=== PATIENT | male | born 1955 | race Caucasian/White ===

== ENCOUNTER 2020-06-07 06:41 | Day surgery (SDC) | payer MEDICARE, OTHER ==
[~2020-06-07 06:41] MED LIST: Lactated Ringers 1,000 ML IV SCH; Lidocaine 1%/Sod Bicarbonate in NS 8.4% 1 ML Syringe IDERM PRN; Sodium Chloride 0.9% 10 ML Syringe FLUSH PRN
--- NOTE | 2020-06-07 06:57 | PCM.PREANE ---
Preanesthetic Assessment - Procedure Proposed Procedure: A one deepa release - Anesthesia/Transfusion/Family Hx Anesthesia History: Prior Anesthesia Reaction (nausea) Family History of Anesthesia Reaction: No Transfusion History: No Prior Transfusion(s) - Review of Systems General: No Symptoms Pulmonary: No Symptoms Cardiovascular: No Symptoms Gastrointestinal: No Symptoms Neurological: No Symptoms Other: Reports: None - Physical Assessment NPO Status Date: 06/06/20 NPO Status Time: 00:00 Height: 1.83 m Weight: 95.118 kg ASA Class: 2 Mental Status: Alert & Oriented x3 Airway Class: Mallampati = 1 Dentition: Reports: Normal Dentition Thyro-Mental Finger Breadths: 3 Mouth Opening Finger Breadths: 3 ROM/Head Extension: Full Lungs: Clear to Auscultation, Normal Respiratory Effort Cardiovascular: Regular Rate, Regular Rhythm - Lab Values: Laboratory Last Values COVID-19 PCR Not detected (NOT DETECT) 06/04/20 11:00 - Allergies Allergies/Adverse Reactions: Allergies Allergy/AdvReac Type Severity Reaction Status Date / Time No Known Allergies Allergy Verified 06/06/20 14:27 - Blood Blood Available: No Product(s) Available: None - Anesthesia Plan Pre-Op Medication Ordered: None - Acknowledgements Anesthesia Type Planned: MAC Pt an Appropriate Candidate for the Planned Anesthesia: Yes Alternatives and Risks of Anesthesia Discussed w Pt/Guardian: Yes Pt/Guardian Understands and Agrees with Anesthesia Plan: Yes PreAnesthesia Questionnaire HEENT History: Reports: Other (See Below) Other HEENT History: wears glasses Cardiovascular History: Reports: Hypertension Respiratory History: Reports: Sleep Apnea Gastrointestinal History: Reports: Gastritis, GERD Genitourinary History: Reports: None 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 Musculoskeletal History: Reports: None Neurological History: Reports: None Psychiatric History: Reports: None Endocrine/Metabolic History: Reports: None Hematologic History: Reports: None Immunologic History: Reports: None Oncologic (Cancer) History: Reports: None Dermatologic History: Reports: None - Infectious Disease History Infectious Disease History: Reports: None - Past Surgical History Head Surgeries/Procedures: Reports: None HEENT Surgical History: Reports: Naso-Sinus Surgery, Tonsillectomy, Other (See Below) Other HEENT Surgeries/Procedures: uvulectomy Cardiovascular Surgical History: Reports: None Respiratory Surgical History: Reports: None GI Surgical History: Reports: Colonoscopy, EGD Female Surgical History: Reports: None Male Surgical History: Reports: None Endocrine Surgical History: Reports: None Neurological Surgical History: Reports: None Musculoskeletal Surgical History: Reports: Other (See Below) Other Musculoskeletal Surgeries/Procedures:: left knee arthroscopy, shoulder arthroscopy, bilateral hand fracture, left rotator cuff repair Oncologic Surgical History: Reports: None Dermatological Surgical History: Reports: None - SUBSTANCE USE Smoking Status *Q: Never Smoker Tobacco Use Within Last Twelve Months: No Second Hand Smoke Exposure: No Days Per Week of Alcohol Use: 0 Number of Drinks Per Day: 0 Total Drinks Per Week: 0 Recreational Drug Use History: No - HOME MEDS Home Medications: Home Meds Ascorbic Acid [Vitamin C] 1,000 mg PO DAILY 06/06/20 [History] Aspirin [Halfprin] 81 mg PO DAILY 06/06/20 [History] Calcium Carb/Magnesium Hydrox [Rolaids Chewable Tablet] 1 tab PO Q2H PRN 06/06/20 [History] Cholecalciferol (Vitamin D3) [Vitamin D3] 5,000 unit PO DAILY 06/06/20 [History] Dextromethorphan/guaiFENesin [Mucinex DM ER 600-30 MG] 1 tab PO BID PRN 06/06/20 [History] Esomeprazole Magnesium [Nexium] 40 mg PO DAILY 06/06/20 [History] Fluticasone Propionate 1 spray NASBOTH DAILY 06/06/20 [History] Loratadine [Claritin] 10 mg PO DAILY 06/06/20 [History] Multivitamin 1 tab PO DAILY 06/06/20 [History] Pantoprazole Sodium [Protonix] 40 mg PO DAILY 06/06/20 [History] hydroCHLOROthiazide [Hydrochlorothiazide] 12.5 mg PO DAILY 06/06/20 [History] - CURRENT (IN HOUSE) MEDS Current Meds: Current Medications Lactated Ringer's (Ringers, Lactated) 1,000 mls @ 125 mls/hr IV ASDIRECTED JUANIS Stop: 06/07/20 23:00 Lidocaine/Sodium Bicarbonate (Buffered Lidocaine 1% In Ns 8.4%) 0.25 ml IDERM ONETIME PRN PRN Reason: Prior to IV Start Stop: 06/07/20 18:00 Sodium Chloride (Saline Flush) 10 ml FLUSH ASDIRECTED PRN PRN Reason: Keep Vein Open Stop: 06/07/20 18:00
[2020-06-07] MEDS ORDERED: Ondansetron 4 MG/2 ML SDV ONE (08:14)
[2020-06-07] MEDS ORDERED: Propofol 200 MG/20 ML SDV ONE ×2 (08:14→09:08)
[2020-06-07] MEDS ORDERED: Midazolam 1 MG/ML 2 ML SDV ONE (08:15)
[2020-06-07] MEDS ORDERED: Lidocaine 1% 4 ML ONE (08:15)
[2020-06-07] MEDS ORDERED: fentaNYL 100 MCG/2 ML SDV ONE (08:15)
[2020-06-07] MEDS ORDERED: Bupivacaine 0.25% 10 ML SDV ONE (08:16)
[2020-06-07] MEDS ORDERED: ceFAZolin 1 GM Vial ONE (08:18)
[2020-06-07] MEDS: Bupivacaine 0.25% 10 ML SDV ONE ×2 (08:57→09:06)
--- NOTE | 2020-06-07 09:28 | PCM48HPAN ---
Post Anesthesia Note - EVALUATION WITHIN 48HRS OF ANESTHETIC Vital Signs in Normal Range: Yes Patient Participated in Evaluation: Yes Respiratory Function Stable: Yes Airway Patent: Yes Cardiovascular Function Stable: Yes Hydration Status Stable: Yes Pain Control Satisfactory: Yes Nausea and Vomiting Control Satisfactory: Yes Mental Status Recovered: Yes Vital Signs: Last Vital Signs Temp 36.1 C 06/07/20 07:10 Pulse 69 06/07/20 07:10 Resp 16 06/07/20 07:10 BP 129/83 06/07/20 07:10 Pulse Ox 94 L 06/07/20 07:10 - COMMENTS/OBSERVATIONS Free Text/Narrative:: no anesthesia complications noted
--- NOTE | 2020-06-15 08:23 | OR ---
DATE OF OPERATION: 06/07/2020 SURGEON: Jesus Gibbs MD PREOPERATIVE DIAGNOSIS: 1. Left index finger stenosing tenosynovitis. 2. Left ring finger stenosing tenosynovitis. POSTOPERATIVE DIAGNOSIS: 1. Left index finger stenosing tenosynovitis. 2. Left ring finger stenosing tenosynovitis. OPERATION PERFORMED: 1. Left index finger A1 deepa release. 2. Left ring finger A1 deepa release. SENIOR OPERATIONS MANAGER: DESCRIPTION OF PROCEDURE: Mr. Quinteros is a very pleasant 65-year-old gentleman with symptomatic stenosing tenosynovitis. After discussing the risks, benefits, and alternatives to both conservative as well as surgical treatment, the patient verbalized understanding and wished to proceed with surgery. The patient was brought to the operating room and underwent monitored anesthesia care. The left upper extremity was prepped and draped in a standard orthopedic fashion. A surgical pause was performed identifying the appropriate patient and appropriate extremity to be operated upon. Preoperative antibiotics were given. The index and ring fingers were infiltrated with several milliliters of Lidocaine. The left upper extremity was then exsanguinated and pneumatic tourniquet was inflated to 250 mmHg. We made a longitudinal incision over the distal palmar crease over the ring finger as well as the curvilinear crease over the index finger distal to the distal palmar crease. Sharp dissection was carried out through the skin and subcutaneous tissue. Hemostasis was obtained in both fingers. Starting on the index finger, I dissected down and identified the radial sensory branch. This was mobilized and protected. Identified the A1 deepa. Utilizing the Rawlins blade, we opened the A1 deepa and released this distally to the level of the cruciate deepa and released the flexor tendon sheath proximally. He had significant synovitis present. The tenosynovectomy was performed. Attention was directed to the ring finger. I made a longitudinal incision over the A1 deepa. This was split. We then released the first cruciate deepa and released the flexor tendon sheath proximally. We then performed a flexor tenosynovectomy. Then with active flexion and extension his mechanical symptoms were significantly improved. The wounds were irrigated and the skin was closed with 5-0 nylon. He was placed in a soft dressing and brought to the recovery in a satisfactory condition. ANESTHESIA: ESTIMATED BLOOD LOSS: MMODAL /[id number]
== END 2020-06-07 10:21 | disposition home or self-care (01) ==
LOC: JD.SDS 06:41
PROVIDERS: ATTEND Orthopaedic Surgery
DX: M65.842 Other synovitis and tenosynovitis, left hand (principal); I10 Essential (primary) hypertension; Z01.812 Encounter for preprocedural laboratory examination; Z20.828 Contact with and (suspected) exposure to other viral communicable diseases; Z79.899 Other long term (current) drug therapy; Z79.82 Long term (current) use of aspirin
CPT/HCPCS: 26055; 87641; J0690; J2001; J2250; J2405; J2704; J3010; J3490; J7120; U0002; 01810

== ENCOUNTER 2021-06-24 01:38 | Inpatient (IN) | payer MEDICARE, OTHER ==
[2021-06-24] MEDS ORDERED: Sodium Chloride 0.9% 1,000 ML IV STA (02:14)
[2021-06-24] MEDS ORDERED: Ondansetron 4 MG/2 ML SDV IVPUSH ONE ×2 (02:15→09:44)
[2021-06-24] MEDS ORDERED: HYDROmorphone 0.5 MG/0.5 ML Syringe IVPUSH ONE ×3 (02:15→08:19)
[2021-06-24] MEDS: Sodium Chloride 0.9% 10 ML Syringe FLUSH PRN ×2 (02:42→03:43)
[2021-06-24] MEDS ORDERED: Sodium Chloride 0.9% 10 ML SDV FLUSH ONE (03:42)
[2021-06-24] MEDS ORDERED: Iopamidol 612 MG/ML 50 ML SDV IVPUSH ONE (03:42)
[2021-06-24] MEDS ORDERED: Diatrizoate Meglumine/Diatrizoate Sodium 37% 120 ML Bottle PO ONE (03:42)
[2021-06-24] MEDS ORDERED: Iopamidol 612 MG/ML 100 ML Bottle IVPUSH ONE (03:42)
[2021-06-24] MEDS ORDERED: cefOXitin 2 GM in Premix Bag 1 BAG IV ONE (04:31)
--- NOTE | 2021-06-24 04:31 | EDM.PDOC ---
ED HPI GENERAL MEDICAL PROBLEM - General Chief Complaint: Abdominal Pain Stated Complaint: ABD PAIN Time Seen by Provider: 06/24/21 02:06 Source of Information: Reports: Patient History Limitations: Reports: No Limitations - History of Present Illness INITIAL COMMENTS - FREE TEXT/NARRATIVE: The patient presents with right lower abdominal pain. This started 2 days ago and it has been constant. He has some nausea at times. He has no fever, chills, cough, chest pain, or diarrhea. He still has appendix and gallbladder. He has a history of hypertension. Onset: Gradual Duration: Day(s): (2) Location: Reports: Abdomen Quality: Reports: Sharp Severity: Moderate Improves with: Reports: None Worsens with: Reports: None Associated Symptoms: Reports: No Other Symptoms Right Abdominal Pain Score (Numeric/FACES): 7 - Related Data Allergies Allergy/AdvReac Type Severity Reaction Status Date / Time No Known Allergies Allergy Verified 06/24/21 02:06 Home Meds: Home Meds Ascorbic Acid [Vitamin C] 1,000 mg PO DAILY 06/06/20 [History] Aspirin [Halfprin] 81 mg PO DAILY 06/06/20 [History] Cholecalciferol (Vitamin D3) [Vitamin D3] 5,000 unit PO DAILY 06/06/20 [History] Multivitamin 1 tab PO DAILY 06/06/20 [History] hydroCHLOROthiazide [Hydrochlorothiazide] 12.5 mg PO DAILY 06/06/20 [History] Carbidopa/Levodopa [Carbidopa-Levo 10-100 mg Odt] 1.5 tab PO TID 06/24/21 [History] Esomeprazole Magnesium 40 mg PO DAILY 06/24/21 [History] Tamsulosin [Flomax] 0.4 mg PO DAILY 06/24/21 [History] Past Medical History HEENT History: Reports: Other (See Below) Other HEENT History: wears glasses Cardiovascular History: Reports: Hypertension Respiratory History: Reports: Sleep Apnea Gastrointestinal History: Reports: Gastritis, GERD Genitourinary History: Reports: None 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 Musculoskeletal History: Reports: None Neurological History: Reports: None Psychiatric History: Reports: None Endocrine/Metabolic History: Reports: None Hematologic History: Reports: None Immunologic History: Reports: None Oncologic (Cancer) History: Reports: None Dermatologic History: Reports: None - Infectious Disease History Infectious Disease History: Reports: None - Past Surgical History Head Surgeries/Procedures: Reports: None HEENT Surgical History: Reports: Naso-Sinus Surgery, Tonsillectomy, Other (See Below) Other HEENT Surgeries/Procedures: uvulectomy Cardiovascular Surgical History: Reports: None Respiratory Surgical History: Reports: None GI Surgical History: Reports: Colonoscopy, EGD Male Surgical History: Reports: None Endocrine Surgical History: Reports: None Neurological Surgical History: Reports: None Musculoskeletal Surgical History: Reports: Other (See Below) Other Musculoskeletal Surgeries/Procedures:: left knee arthroscopy, shoulder arthroscopy, bilateral hand fracture, left rotator cuff repair Oncologic Surgical History: Reports: None Dermatological Surgical History: Reports: None Social & Family History - Tobacco Use Tobacco Use Status *Q: Never Tobacco User Second Hand Smoke Exposure: No - Caffeine Use Caffeine Use: Reports: None - Recreational Drug Use Recreational Drug Use: No ED ROS GENERAL - Review of Systems Review Of Systems: See Below Constitutional: Reports: No Symptoms HEENT: Reports: No Symptoms Respiratory: Reports: No Symptoms Cardiovascular: Reports: No Symptoms Endocrine: Reports: No Symptoms GI/Abdominal: Reports: Abdominal Pain, Nausea. Denies: Diarrhea, Vomiting : Reports: No Symptoms Musculoskeletal: Reports: No Symptoms ED EXAM, GI/ABD - Physical Exam Exam: See Below Exam Limited By: No Limitations General Appearance: Alert, No Apparent Distress Ears: Normal External Exam Nose: Normal Inspection Head: Atraumatic, Normocephalic Neck: Normal Inspection Respiratory/Chest: No Respiratory Distress, Lungs Clear, Normal Breath Sounds Cardiovascular: Regular Rate, Rhythm, No Edema, No Murmur GI/Abdominal Exam: Soft, No Organomegaly, No Mass, Tender (Moderate tenderness to the right lower abdomen) Course - Vital Signs Last Recorded V/S: Last Vital Signs Temp 97.4 F 06/24/21 02:04 Pulse 80 06/24/21 02:04 Resp 20 06/24/21 02:04 BP 139/79 06/24/21 02:04 Pulse Ox 93 L 06/24/21 02:04 - Orders/Labs/Meds Orders: Active Orders 24 hr Category Date Time Status Peripheral IV Care [RC] . DIRECTED Care 06/24/21 02:14 Active Abdomen Pelvis w Cont [CT] Stat Exams 06/24/21 02:14 Taken UA W/MICROSCOPIC [URIN] Stat Lab 06/24/21 02:14 Ordered Sodium Chloride 0.9% [Saline Flush] Med 06/24/21 02:14 Active 10 ml FLUSH ASDIRECTED PRN ED Antiemetic Medication Reflex [OM.PC] Stat Oth 06/24/21 02:14 Ordered Peripheral IV Insertion Adult [OM.PC] Stat Ot 06/24/21 02:14 Ordered Medication Orders Sodium Chloride (Sodium Chloride 0.9% 10 Ml Syringe) 10 ml FLUSH ASDIRECTED PRN PRN Reason: Keep Vein Open Last Admin: 06/24/21 03:43 Dose: 10 ml Documented by: Admin: 06/24/21 02:42 Dose: 10 ml Documented by: LEBRON Labs: Laboratory Tests 06/24/21 06/24/21 Range/Units 02:03 02:03 WBC 14.28 H (4.23-9.07) K/mm3 RBC 5.70 (4.63-6.08) M/mm3 Hgb 16.3 (13.7-17.5) gm/dl Hct 48.0 (40.1-51.0) % MCV 84.2 (79.0-92.2) fl MCH 28.6 (25.7-32.2) pg MCHC 34.0 (32.2-35.5) g/dl RDW Std Deviation 41.9 (35.1-43.9) fL Plt Count 245 (163-337) K/mm3 MPV 10.2 (9.4-12.3) fl Neut % (Auto) 81.2 H (34.0-67.9) % Lymph % (Auto) 9.2 L (21.8-53.1) % [place] % (Auto) 8.7 (5.3-12.2) % Eos % (Auto) 0.3 L (0.8-7.0) Baso % (Auto) 0.3 (0.1-1.2) % Neut # (Auto) 11.61 H (1.78-5.38) K/mm3 Lymph # (Auto) 1.31 L (1.32-3.57) K/mm3 [place] # (Auto) 1.24 H (0.30-0.82) K/mm3 Eos # (Auto) 0.04 (0.04-0.54) K/mm3 Baso # (Auto) 0.04 (0.01-0.08) K/mm3 Sodium 136 (136-145) mEq/L Potassium 4.1 (3.5-5.1) mEq/L Chloride 100 (98-107) mEq/L Carbon Dioxide 30 (21-32) mEq/L Anion Gap 10.1 (5-15) BUN 19 H (7-18) mg/dL Creatinine 1.1 (0.7-1.3) mg/dL Est Cr Clr Drug Dosing 70.55 mL/min Estimated GFR (MDRD) > 60 (>60) mL/min BUN/Creatinine Ratio 17.3 (14-18) Glucose 125 H (70-99) mg/dL Calcium 9.1 (8.5-10.1) mg/dL Total Bilirubin 1.0 (0.2-1.0) mg/dL AST 28 (15-37) U/L ALT 30 (16-63) U/L Alkaline Phosphatase 59 (46-116) U/L Total Protein 7.5 (6.4-8.2) g/dl Albumin 4.0 (3.4-5.0) g/dl Globulin 3.5 gm/dL Albumin/Globulin Ratio 1.1 (1-2) Lipase 73 (73-393) U/L Meds: Medications Generic Name Dose Route Start Last Admin Trade Name Jamel PRN Reason Stop Dose Admin Sodium Chloride 10 ml 06/24/21 02:14 06/24/21 03:43 Sodium Chloride 0.9% 10 Ml Syringe FLUSH 10 ml ASDIRECTED PRN Administration Keep Vein Open Discontinued Medications Generic Name Dose Route Start Last Admin Trade Name Jamel PRN Reason Stop Dose Admin Diatrizoate Meglum/Diatrizoate Sod 120 ml 06/24/21 03:42 06/24/21 03:43 Diatrizoate Meglumine/Diatrizoate Sodium 37% 120 Ml Bottle PO 06/24/21 03:43 120 ml ONETIME ONE Administration Hydromorphone HCl 0.5 mg 06/24/21 02:15 06/24/21 02:42 Hydromorphone 0.5 Mg/0.5 Ml Syringe IVPUSH 06/24/21 02:16 0.5 mg ONETIME ONE Administration Sodium Chloride 1,000 mls @ 1,000 mls/hr 06/24/21 02:14 06/24/21 02:40 Normal Saline IV 06/24/21 03:13 1,000 mls/hr .BOLUS STA Administration Iopamidol 50 ml 06/24/21 03:42 06/24/21 03:43 Iopamidol 612 Mg/Ml 50 Ml Sdv IVPUSH 06/24/21 03:43 50 ml ONETIME ONE Administration Iopamidol 100 ml 06/24/21 03:42 06/24/21 03:43 Iopamidol 612 Mg/Ml 100 Ml Bottle IVPUSH 06/24/21 03:43 100 ml ONETIME ONE Administration Ondansetron HCl 4 mg 06/24/21 02:15 06/24/21 02:42 Ondansetron 4 Mg/2 Ml Sdv IVPUSH 06/24/21 02:16 4 mg ONETIME ONE Administration Sodium Chloride 10 ml 06/24/21 03:42 06/24/21 04:00 Sodium Chloride 0.9% 10 Ml Sdv FLUSH 06/24/21 03:43 10 ml ONETIME ONE Administration - Re-Assessments/Exams Free Text/Narrative Re-Assessment/Exam: 06/24/21 04:29 I ordered an IV NS 1L bolus, zofran 4mg IV, labs, UA and a CT of his abdomen and pelvis with IV and oral contrast. His WBC was elevated at 14.28. His CMP looks good. His lipase is normal. His CT shows acute appendicitis with small appendicolith. Fatty infiltration of the liver. 06/24/21 04:[address] Frye and he wanted 2 grams of cefoxitin and he will see him in a couple hours. Departure - Departure Time of Disposition: 16:35 Disposition: DC/Tfer to [facility] Condition: Fair Clinical Impression: Appendicitis Qualifiers: Appendicitis type: acute appendicitis Acute appendicitis type: with localized peritonitis Appendicitis gangrene presence: without gangrene Appendicitis perforation presence: without perforation Appendicitis abscess presence: without abscess Qualified Code(s): K35.30 - Acute appendicitis with localized peritonitis, without perforation or gangrene - Discharge Information Referrals: César Giang MD [Primary Care Provider] - Sepsis Event Note (ED) - Focused Exam Vital Signs: Vital Signs Temp Pulse Resp BP Pulse Ox 06/24/21 02:04 97.4 F 80 20 139/79 93 L - My Orders Last 24 Hours: My Active Orders 06/24/21 02:14 Peripheral IV Care [RC] . DIRECTED Abdomen Pelvis w Cont [CT] Stat UA W/MICROSCOPIC [URIN] Stat Sodium Chloride 0.9% [Saline Flush] 10 ml FLUSH ASDIRECTED PRN ED Antiemetic Medication Reflex [OM.PC] Stat Peripheral IV Insertion Adult [OM.PC] Stat - Assessment/Plan Last 24 Hours: My Active Orders 06/24/21 02:14 Peripheral IV Care [RC] . DIRECTED Abdomen Pelvis w Cont [CT] Stat UA W/MICROSCOPIC [URIN] Stat Sodium Chloride 0.9% [Saline Flush] 10 ml FLUSH ASDIRECTED PRN ED Antiemetic Medication Reflex [OM.PC] Stat Peripheral IV Insertion Adult [OM.PC] Stat
--- NOTE | 2021-06-24 08:08 | PCM.HP.2 ---
H&P History of Present Illness - General Date of Service: 06/24/21 Source of Information: Patient History Limitations: Reports: No Limitations - History of Present Illness Initial Comments - Free Text/Narative: Patient started having periumbilical pain on Thursday06/21/2021 this eventually localized to the right lower quadrant. It continued to worsen and by Saturday 06/23, the patient could not tolerate it anymore. He presented to the hospital. The pain was worse with walking, associated with nausea but no emesis. In the ER, WBC was 14, CT showed acute appendicitis with appendicolith. His last colonoscopy was 4 yrs ago with polyps but nothing else. He had Covid-19 pneumonia in Aug 2020 from which he is still recovering. He can now walk about 2 miles without SOB. He has no CAD. Not a smoker. rarely consumes alcohol. Onset of Symptoms: Reports: Gradual Duration of Symptoms: Reports: Day(s): (3) Location: Reports: Abdomen (RLQ) Quality: Reports: Sharp Severity: Severe Improves with: Reports: None, Immobilization Worsens with: Reports: Movement Associated Symptoms: Reports: No Other Symptoms Right Abdominal Pain Score (Numeric/FACES): 7 - Related Data Allergies/Adverse Reactions: Allergies Allergy/AdvReac Type Severity Reaction Status Date / Time No Known Allergies Allergy Verified 06/24/21 02:06 Home Medications: Home Meds Ascorbic Acid [Vitamin C] 1,000 mg PO DAILY 06/06/20 [History] Aspirin [Halfprin] 81 mg PO DAILY 06/06/20 [History] Cholecalciferol (Vitamin D3) [Vitamin D3] 5,000 unit PO DAILY 06/06/20 [History] Multivitamin 1 tab PO DAILY 06/06/20 [History] hydroCHLOROthiazide [Hydrochlorothiazide] 12.5 mg PO DAILY 06/06/20 [History] Carbidopa/Levodopa [Carbidopa-Levo 10-100 mg Odt] 1.5 tab PO TID 06/24/21 [History] Esomeprazole Magnesium 40 mg PO DAILY 06/24/21 [History] Tamsulosin [Flomax] 0.4 mg PO DAILY 06/24/21 [History] Past Medical History HEENT History: Reports: Other (See Below) Other HEENT History: wears glasses Cardiovascular History: Reports: Hypertension Respiratory History: Reports: Sleep Apnea Gastrointestinal History: Reports: Gastritis, GERD Genitourinary History: Reports: None PHLEBOTOMIST ASSOCIATE History: Reports: None Musculoskeletal History: Reports: None Neurological History: Reports: None Psychiatric History: Reports: None Endocrine/Metabolic History: Reports: None Hematologic History: Reports: None Immunologic History: Reports: None Oncologic (Cancer) History: Reports: None Dermatologic History: Reports: None - Infectious Disease History Infectious Disease History: Reports: None - Past Surgical History Head Surgeries/Procedures: Reports: None HEENT Surgical History: Reports: Naso-Sinus Surgery, Tonsillectomy, Other (See Below) Other HEENT Surgeries/Procedures: uvulectomy Cardiovascular Surgical History: Reports: None Respiratory Surgical History: Reports: None GI Surgical History: Reports: Colonoscopy, EGD Male Surgical History: Reports: None Endocrine Surgical History: Reports: None Neurological Surgical History: Reports: None Musculoskeletal Surgical History: Reports: Other (See Below) Other Musculoskeletal Surgeries/Procedures:: left knee arthroscopy, shoulder arthroscopy, bilateral hand fracture, left rotator cuff repair Oncologic Surgical History: Reports: None Dermatological Surgical History: Reports: None Social & Family History - Tobacco Use Tobacco Use Status *Q: Never Tobacco User Second Hand Smoke Exposure: No - Caffeine Use Caffeine Use: Reports: None - Recreational Drug Use Recreational Drug Use: No H&P Review of Systems - Review of Systems: Review Of Systems: See Below General: Reports: No Symptoms HEENT: Reports: No Symptoms Pulmonary: Reports: No Symptoms Cardiovascular: Reports: No Symptoms Gastrointestinal: Reports: Abdominal Pain Genitourinary: Reports: No Symptoms Musculoskeletal: Reports: No Symptoms Skin: Reports: No Symptoms Exam - Exam Exam: See Below - Vital Signs Vital Signs: Last Vital Signs Temp 97.4 F 06/24/21 02:04 Pulse 80 06/24/21 02:04 Resp 20 06/24/21 02:04 BP 139/79 06/24/21 02:04 Pulse Ox 93 L 06/24/21 02:04 Weight: 102.058 kg - Exam General: Alert, Oriented, Cooperative Lungs: Clear to Auscultation, Normal Respiratory Effort Cardiovascular: Regular Rate, Regular Rhythm, Normal S1, Normal S2 GI/Abdominal Exam: Soft, No Organomegaly, No Distention, Tender (RLQ, no rebound) - Patient Data Lab Results Last 24 hrs: Laboratory Results - last 24 hr 06/24/21 06/24/21 06/24/21 Range/Units 02:03 02:03 04:15 WBC 14.28 H (4.23-9.07) K/mm3 RBC 5.70 (4.63-6.08) M/mm3 Hgb 16.3 (13.7-17.5) gm/dl Hct 48.0 (40.1-51.0) % MCV 84.2 (79.0-92.2) fl MCH 28.6 (25.7-32.2) pg MCHC 34.0 (32.2-35.5) g/dl RDW Std Deviation 41.9 (35.1-43.9) fL Plt Count 245 (163-337) K/mm3 MPV 10.2 (9.4-12.3) fl Neut % (Auto) 81.2 H (34.0-67.9) % Lymph % (Auto) 9.2 L (21.8-53.1) % [place] % (Auto) 8.7 (5.3-12.2) % Eos % (Auto) 0.3 L (0.8-7.0) Baso % (Auto) 0.3 (0.1-1.2) % Neut # (Auto) 11.61 H (1.78-5.38) K/mm3 Lymph # (Auto) 1.31 L (1.32-3.57) K/mm3 [place] # (Auto) 1.24 H (0.30-0.82) K/mm3 Eos # (Auto) 0.04 (0.04-0.54) K/mm3 Baso # (Auto) 0.04 (0.01-0.08) K/mm3 Sodium 136 (136-145) mEq/L Potassium 4.1 (3.5-5.1) mEq/L Chloride 100 (98-107) mEq/L Carbon Dioxide 30 (21-32) mEq/L Anion Gap 10.1 (5-15) BUN 19 H (7-18) mg/dL Creatinine 1.1 (0.7-1.3) mg/dL Est Cr Clr Drug Dosing 70.55 mL/min Estimated GFR (MDRD) > 60 (>60) mL/min BUN/Creatinine Ratio 17.3 (14-18) Glucose 125 H (70-99) mg/dL Calcium 9.1 (8.5-10.1) mg/dL Total Bilirubin 1.0 (0.2-1.0) mg/dL AST 28 (15-37) U/L ALT 30 (16-63) U/L Alkaline Phosphatase 59 (46-116) U/L Total Protein 7.5 (6.4-8.2) g/dl Albumin 4.0 (3.4-5.0) g/dl Globulin 3.5 gm/dL Albumin/Globulin Ratio 1.1 (1-2) Lipase 73 (73-393) U/L Urine Color Yellow (Yellow) Urine Appearance Clear (Clear) Urine pH 7.5 (5.0-8.0) Ur Specific [place] 1.015 (1.005-1.030) Urine Protein Negative (Negative) Urine Glucose (UA) Negative (Negative) Urine Ketones 1+ H (Negative) Urine Occult Blood Negative (Negative) Urine Nitrite Negative (Negative) Urine Bilirubin Negative (Negative) Urine Urobilinogen 0.2 (0.2-1.0) Ur Leukocyte Esterase Negative (Negative) Urine RBC 0-5 (0-5) /hpf Urine WBC Not seen (0-5) /hpf Ur Epithelial Cells Not seen (0-5) /hpf Urine Bacteria Rare (FEW) /hpf Urine Mucus Not seen (FEW) /hpf SARS-CoV-2 RNA (ALEX) (NEGATIVE) 06/24/21 Range/Units 04:29 WBC (4.23-9.07) K/mm3 RBC (4.63-6.08) M/mm3 Hgb (13.7-17.5) gm/dl Hct (40.1-51.0) % MCV (79.0-92.2) fl MCH (25.7-32.2) pg MCHC (32.2-35.5) g/dl RDW Std Deviation (35.1-43.9) fL Plt Count (163-337) K/mm3 MPV (9.4-12.3) fl Neut % (Auto) (34.0-67.9) % Lymph % (Auto) (21.8-53.1) % [place] % (Auto) (5.3-12.2) % Eos % (Auto) (0.8-7.0) Baso % (Auto) (0.1-1.2) % Neut # (Auto) (1.78-5.38) K/mm3 Lymph # (Auto) (1.32-3.57) K/mm3 [place] # (Auto) (0.30-0.82) K/mm3 Eos # (Auto) (0.04-0.54) K/mm3 Baso # (Auto) (0.01-0.08) K/mm3 Sodium (136-145) mEq/L Potassium (3.5-5.1) mEq/L Chloride (98-107) mEq/L Carbon Dioxide (21-32) mEq/L Anion Gap (5-15) BUN (7-18) mg/dL Creatinine (0.7-1.3) mg/dL Est Cr Clr Drug Dosing mL/min Estimated GFR (MDRD) (>60) mL/min BUN/Creatinine Ratio (14-18) Glucose (70-99) mg/dL Calcium (8.5-10.1) mg/dL Total Bilirubin (0.2-1.0) mg/dL AST (15-37) U/L ALT (16-63) U/L Alkaline Phosphatase (46-116) U/L Total Protein (6.4-8.2) g/dl Albumin (3.4-5.0) g/dl Globulin gm/dL Albumin/Globulin Ratio (1-2) Lipase (73-393) U/L Urine Color (Yellow) Urine Appearance (Clear) Urine pH (5.0-8.0) Ur Specific [place] (1.005-1.030) Urine Protein (Negative) Urine Glucose (UA) (Negative) Urine Ketones (Negative) Urine Occult Blood (Negative) Urine Nitrite (Negative) Urine Bilirubin (Negative) Urine Urobilinogen (0.2-1.0) Ur Leukocyte Esterase (Negative) Urine RBC (0-5) /hpf Urine WBC (0-5) /hpf Ur Epithelial Cells (0-5) /hpf Urine Bacteria (FEW) /hpf Urine Mucus (FEW) /hpf SARS-CoV-2 RNA (ALEX) Negative (NEGATIVE) Result Diagrams: 06/24/21 02:03 06/24/21 02:03 Sepsis Event Note - Focused Exam Vital Signs: Vital Signs Temp Pulse Resp BP Pulse Ox 06/24/21 02:04 97.4 F 80 20 139/79 93 L Problem List Initiated/Reviewed/Updated: No Orders Last 24hrs: Active Orders 24 hr Category Date Time Status Peripheral IV Care [RC] . DIRECTED Care 06/24/21 02:14 Active Abdomen Pelvis w Cont [CT] Stat Exams 06/24/21 02:14 Taken Sodium Chloride 0.9% [Saline Flush] Med 06/24/21 02:14 Active 10 ml FLUSH ASDIRECTED PRN ED Antiemetic Medication Reflex [OM.PC] Stat Oth 06/24/21 02:14 Ordered Peripheral IV Insertion Adult [OM.PC] Stat Oth 06/24/21 02:14 Ordered Medication Orders Sodium Chloride (Sodium Chloride 0.9% 10 Ml Syringe) 10 ml FLUSH ASDIRECTED PRN PRN Reason: Keep Vein Open Last Admin: 06/24/21 03:43 Dose: 10 ml Documented by: Admin: 06/24/21 02:42 Dose: 10 ml Documented by: LEBRON Assessment/Plan Comment:: Patient has acute appendicitis with appendicolith. I recommended appendectomy. We discussed risks, benefits and alternatives. SOme of the risks discussed include but not limited to injury to adjacent structures, bleeding, infection, need for opening, nausea, vomiting, pain. Questions were answered and informed consent was obtained. - Mortality Measure Prognosis:: Good (localized disease)
--- NOTE | 2021-06-24 08:17 | CT ---
CT abdomen and pelvis Technique: Multiple axial sections were obtained from above the dome of the diaphragm inferiorly through the pubic symphysis. Intravenous and oral contrast were not utilized. Delayed images were obtained through the bladder. Reconstructed coronal and sagittal images were obtained. Comparison: Prior CT abdomen and pelvis study of 03/29/09. Findings: Appendix appears to be dilated and shows inflammatory change. Small appendicolith is seen within the proximal appendix. These findings are compatible with appendicitis. Visualized lung bases show mild atelectasis. Liver shows fatty infiltration. Spleen size is normal. Adrenal glands show no nodule. Pancreas is within normal limits. Gallbladder contains no calcified gallstones. Kidneys show symmetric contrast enhancement. Lower pole renal cyst is noted on the right side measuring 11.2 cm. Abdominal aorta shows no aneurysm. No retroperitoneal adenopathy or mesenteric abnormalities are seen. No pelvic mass or adenopathy is seen. Small fat-containing partial inguinal hernia is noted. Delayed images show contrast within both ureters as well as the bladder with no evidence of ureteral obstruction. Bone window settings were reviewed which show mild scattered degenerative change within the spine. Mild degenerative change is also noted within both hips. Nothing acute is seen within the osseous structures. Impression: 1. Findings compatible with appendicitis as described above. 2. Fatty infiltration within the liver. 3. Other findings, as noted above, which are believed to be chronic and of no acute significance. Diagnostic code #5 I agree with preliminary report from [facility], finalized on 06/24/21, 5:03 AM CDT, code 1
--- NOTE | 2021-06-24 08:52 | PCM.PREANE ---
Preanesthetic Assessment - Procedure Proposed Procedure: appendectomy - Anesthesia/Transfusion/Family Hx Anesthesia History: Prior Anesthesia Reaction Type of Anesthesia Reaction: Excessive Nausea/Vomiting (nausea on occasioin ) Family History of Anesthesia Reaction: No Transfusion History: No Prior Transfusion(s) Intubation History: Unknown - Review of Systems General: No Symptoms Pulmonary: No Symptoms, Other (low resting SPo02 ) Cardiovascular: No Symptoms Gastrointestinal: No Symptoms Neurological: Other (parkinsons disocvered 1 year ago - next dose at 11 am ) Other: Reports: None - Physical Assessment NPO Status Date: 06/23/21 NPO Status Time: 18:00 Vital Signs: Last Vital Signs Temp 36.3 C 06/24/21 02:04 Pulse 80 06/24/21 02:04 Resp 20 06/24/21 02:04 BP 139/79 06/24/21 02:04 Pulse Ox 93 L 06/24/21 02:04 Height: 1.83 m Weight: 102.058 kg ASA Class: 3 Mental Status: Alert & Oriented x3 Airway Class: Mallampati = 2 Dentition: Reports: Normal Dentition Thyro-Mental Finger Breadths: 3 Mouth Opening Finger Breadths: 2 - Lab Values: Laboratory Last Values WBC 14.28 K/mm3 (4.23-9.07) H 06/24/21 02:03 RBC 5.70 M/mm3 (4.63-6.08) 06/24/21 02:03 Hgb 16.3 gm/dl (13.7-17.5) 06/24/21 02:03 Hct 48.0 % (40.1-51.0) 06/24/21 02:03 MCV 84.2 fl (79.0-92.2) 06/24/21 02:03 MCH 28.6 pg (25.7-32.2) 06/24/21 02:03 MCHC 34.0 g/dl (32.2-35.5) 06/24/21 02:03 RDW Std Deviation 41.9 fL (35.1-43.9) 06/24/21 02:03 Plt Count 245 K/mm3 (163-337) 06/24/21 02:03 MPV 10.2 fl (9.4-12.3) 06/24/21 02:03 Neut % (Auto) 81.2 % (34.0-67.9) H 06/24/21 02:03 Lymph % (Auto) 9.2 % (21.8-53.1) L 06/24/21 02:03 [place] % (Auto) 8.7 % (5.3-12.2) 06/24/21 02:03 Eos % (Auto) 0.3 (0.8-7.0) L 06/24/21 02:03 Baso % (Auto) 0.3 % (0.1-1.2) 06/24/21 02:03 Neut # (Auto) 11.61 K/mm3 (1.78-5.38) H 06/24/21 02:03 Lymph # (Auto) 1.31 K/mm3 (1.32-3.57) L 06/24/21 02:03 [place] # (Auto) 1.24 K/mm3 (0.30-0.82) H 06/24/21 02:03 Eos # (Auto) 0.04 K/mm3 (0.04-0.54) 06/24/21 02:03 Baso # (Auto) 0.04 K/mm3 (0.01-0.08) 06/24/21 02:03 Sodium 136 mEq/L (136-145) 06/24/21 02:03 Potassium 4.1 mEq/L (3.5-5.1) 06/24/21 02:03 Chloride 100 mEq/L (98-107) 06/24/21 02:03 Carbon Dioxide 30 mEq/L (21-32) 06/24/21 02:03 Anion Gap 10.1 (5-15) 06/24/21 02:03 BUN 19 mg/dL (7-18) H 06/24/21 02:03 Creatinine 1.1 mg/dL (0.7-1.3) 06/24/21 02:03 Est Cr Clr Drug Dosing 70.55 mL/min 06/24/21 02:03 Estimated GFR (MDRD) > 60 mL/min (>60) 06/24/21 02:03 BUN/Creatinine Ratio 17.3 (14-18) 06/24/21 02:03 Glucose 125 mg/dL (70-99) H 06/24/21 02:03 Calcium 9.1 mg/dL (8.5-10.1) 06/24/21 02:03 Total Bilirubin 1.0 mg/dL (0.2-1.0) 06/24/21 02:03 AST 28 U/L (15-37) 06/24/21 02:03 ALT 30 U/L (16-63) 06/24/21 02:03 Alkaline Phosphatase 59 U/L (46-116) 06/24/21 02:03 Total Protein 7.5 g/dl (6.4-8.2) 06/24/21 02:03 Albumin 4.0 g/dl (3.4-5.0) 06/24/21 02:03 Globulin 3.5 gm/dL 06/24/21 02:03 Albumin/Globulin Ratio 1.1 (1-2) 06/24/21 02:03 Lipase 73 U/L (73-393) 06/24/21 02:03 Urine Color Yellow (Yellow) 06/24/21 04:15 Urine Appearance Clear (Clear) 06/24/21 04:15 Urine pH 7.5 (5.0-8.0) 06/24/21 04:15 Ur Specific [place] 1.015 (1.005-1.030) 06/24/21 04:15 Urine Protein Negative (Negative) 06/24/21 04:15 Urine Glucose (UA) Negative (Negative) 06/24/21 04:15 Urine Ketones 1+ (Negative) H 06/24/21 04:15 Urine Occult Blood Negative (Negative) 06/24/21 04:15 Urine Nitrite Negative (Negative) 06/24/21 04:15 Urine Bilirubin Negative (Negative) 06/24/21 04:15 Urine Urobilinogen 0.2 (0.2-1.0) 06/24/21 04:15 Ur Leukocyte Esterase Negative (Negative) 06/24/21 04:15 Urine RBC 0-5 /hpf (0-5) 06/24/21 04:15 Urine WBC Not seen /hpf (0-5) 06/24/21 04:15 Ur Epithelial Cells Not seen /hpf (0-5) 06/24/21 04:15 Urine Bacteria Rare /hpf (FEW) 06/24/21 04:15 Urine Mucus Not seen /hpf (FEW) 06/24/21 04:15 SARS-CoV-2 RNA (ALEX) Negative (NEGATIVE) 06/24/21 04:29 - Allergies Allergies/Adverse Reactions: Allergies Allergy/AdvReac Type Severity Reaction Status Date / Time No Known Allergies Allergy Verified 06/24/21 02:06 - Blood Blood Available: No Product(s) Available: None - Anesthesia Plan Free Text/Narrative:: pt has parkinsons disease. had conversation with pt and about what that may mean for his anesthetic- delayed extubation, weakness of muscle strength. Spoke to them about importance of talking his parkinson medication as close to regular scheduled times as possible and before he goes back for surgery . 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 Musculoskeletal History: Reports: None Neurological History: Reports: None Psychiatric History: Reports: None Endocrine/Metabolic History: Reports: None Hematologic History: Reports: None Immunologic History: Reports: None Oncologic (Cancer) History: Reports: None Dermatologic History: Reports: None - Infectious Disease History Infectious Disease History: Reports: None - Past Surgical History Head Surgeries/Procedures: Reports: None HEENT Surgical History: Reports: Naso-Sinus Surgery, Tonsillectomy, Other (See Below) Other HEENT Surgeries/Procedures: uvulectomy Cardiovascular Surgical History: Reports: None Respiratory Surgical History: Reports: None GI Surgical History: Reports: Colonoscopy, EGD Male Surgical History: Reports: None Endocrine Surgical History: Reports: None Neurological Surgical History: Reports: None Musculoskeletal Surgical History: Reports: Other (See Below) Other Musculoskeletal Surgeries/Procedures:: left knee arthroscopy, shoulder arthroscopy, bilateral hand fracture, left rotator cuff repair Oncologic Surgical History: Reports: None Dermatological Surgical History: Reports: None - SUBSTANCE USE Tobacco Use Status *Q: Never Tobacco User Second Hand Smoke Exposure: No Recreational Drug Use History: No - HOME MEDS Home Medications: Home Meds Ascorbic Acid [Vitamin C] 1,000 mg PO DAILY 06/06/20 [History] Aspirin [Halfprin] 81 mg PO DAILY 06/06/20 [History] Cholecalciferol (Vitamin D3) [Vitamin D3] 5,000 unit PO DAILY 06/06/20 [History] Multivitamin 1 tab PO DAILY 06/06/20 [History] hydroCHLOROthiazide [Hydrochlorothiazide] 12.5 mg PO DAILY 06/06/20 [History] Carbidopa/Levodopa [Carbidopa-Levo 10-100 mg Odt] 1.5 tab PO TID 06/24/21 [History] Esomeprazole Magnesium 40 mg PO DAILY 06/24/21 [History] Tamsulosin [Flomax] 0.4 mg PO DAILY 06/24/21 [History] - CURRENT (IN HOUSE) MEDS Current Meds: Current Medications Sodium Chloride (Sodium Chloride 0.9% 10 Ml Syringe) 10 ml FLUSH ASDIRECTED PRN PRN Reason: Keep Vein Open Last Admin: 06/24/21 03:43 Dose: 10 ml Documented by: Discontinued Medications Diatrizoate Meglum/Diatrizoate Sod (Diatrizoate Meglumine/Diatrizoate Sodium 37% 120 Ml Bottle) 120 ml PO ONETIME ONE Stop: 06/24/21 03:43 Last Admin: 06/24/21 03:43 Dose: 120 ml Documented by: Hydromorphone HCl (Hydromorphone 0.5 Mg/0.5 Ml Syringe) 0.5 mg IVPUSH ONETIME ONE Stop: 06/24/21 02:16 Last Admin: 06/24/21 02:42 Dose: 0.5 mg Documented by: Hydromorphone HCl (Hydromorphone 0.5 Mg/0.5 Ml Syringe) 0.5 mg IVPUSH ONETIME ONE Stop: 06/24/21 05:28 Last Admin: 06/24/21 05:44 Dose: 0.5 mg Documented by: Hydromorphone HCl (Hydromorphone 0.5 Mg/0.5 Ml Syringe) 0.5 mg IVPUSH ONETIME ONE Stop: 06/24/21 08:20 Last Admin: 06/24/21 08:23 Dose: 0.5 mg Documented by: Sodium Chloride (Normal Saline) 1,000 mls @ 1,000 mls/hr IV .BOLUS STA Stop: 06/24/21 03:13 Last Admin: 06/24/21 02:40 Dose: 1,000 mls/hr Documented by: Cefoxitin Sodium 2 gm/ Premix 50 mls @ 100 mls/hr IV ONETIME ONE Stop: 06/24/21 05:00 Last Admin: 06/24/21 04:50 Dose: 100 mls/hr Documented by: Iopamidol (Iopamidol 612 Mg/Ml 50 Ml Sdv) 50 ml IVPUSH ONETIME ONE Stop: 06/24/21 03:43 Last Admin: 06/24/21 03:43 Dose: 50 ml Documented by: Iopamidol (Iopamidol 612 Mg/Ml 100 Ml Bottle) 100 ml IVPUSH ONETIME ONE Stop: 06/24/21 03:43 Last Admin: 06/24/21 03:43 Dose: 100 ml Documented by: Ondansetron HCl (Ondansetron 4 Mg/2 Ml Sdv) 4 mg IVPUSH ONETIME ONE Stop: 06/24/21 02:16 Last Admin: 06/24/21 02:42 Dose: 4 mg Documented by: Sodium Chloride (Sodium Chloride 0.9% 10 Ml Sdv) 10 ml FLUSH ONETIME ONE Stop: 06/24/21 03:43 Last Admin: 06/24/21 04:00 Dose: 10 ml Documented by:
[2021-06-24] MEDS ORDERED: HYDROmorphone 1 MG/ML Syringe IVPUSH ONE (09:44)
[2021-06-24] MEDS ORDERED: Propofol 200 MG/20 ML SDV ONE (12:19)
[2021-06-24] MEDS ORDERED: Midazolam 1 MG/ML 2 ML SDV ONE (12:19)
[2021-06-24] MEDS ORDERED: fentaNYL 250 MCG/5 ML SDV ONE (12:19)
[2021-06-24] MEDS ORDERED: Rocuronium 50 MG/5 ML Vial ONE (12:22)
[2021-06-24] MEDS ORDERED: Ondansetron 4 MG/2 ML SDV ONE (12:23)
[2021-06-24] MEDS ORDERED: Dexamethasone 4 MG/ML 5 ML MDV ONE (12:23)
[2021-06-24] MEDS ORDERED: Ketorolac 30 MG/ML SDV ONE (12:36)
[2021-06-24] MEDS ORDERED: Bupivacaine 0.5%/EPINEPHrine 1:200,000 50 ML MDV ONE (13:26)
[2021-06-24] MEDS ORDERED: Lactated Ringers 1,000 ML ONE ×2 (14:12)
[2021-06-24] MEDS ORDERED: HYDROmorphone 0.5 MG/0.5 ML Syringe ONE ×2 (14:29→14:57)
[2021-06-24] MEDS ORDERED: Ketamine 500 mg/10 ML MDV ONE (14:30)
[2021-06-24] MEDS ORDERED: fentaNYL 100 MCG/2 ML SDV IVPUSH PRN (15:06)
[2021-06-24] MEDS ORDERED: HYDROmorphone 0.5 MG/0.5 ML Syringe IVPUSH PRN ×2 (15:06→15:49)
[2021-06-24] MEDS ORDERED: Ondansetron 4 MG/2 ML SDV IVPUSH PRN (15:06)
[2021-06-24] MEDS ORDERED: Albuterol 6.7 GM Inhaler INH ONE (15:41)
[2021-06-24] MEDS ORDERED: Acetaminophen/oxyCODONE 325-5 MG Tab PO PRN (15:49)
[2021-06-24] MEDS ORDERED: Polyethylene Glycol 3350 Powder 17 GM Packet PO PRN (15:49)
[2021-06-24] MEDS ORDERED: Lactated Ringers 1,000 ML IV SCH (16:00)
[2021-06-24] MEDS ORDERED: Piperacillin/Tazobactam 4.5 GM in Sodium Chloride 0.9% 100 ML IV ONE (16:02)
--- NOTE | 2021-06-24 16:09 | PCM.POSTAN ---
POST ANESTHESIA ASSESSMENT - MENTAL STATUS Mental Status: Somnolent - VITAL SIGNS Vital Signs: 1552 125/93 91 116 14 97.7 Last Vital Signs Temp 36.3 C 06/24/21 02:04 Pulse 80 06/24/21 02:04 Resp 20 06/24/21 02:04 BP 139/79 06/24/21 02:04 Pulse Ox 92 L 06/24/21 10:01 - RESPIRATORY Respiratory Status: Respiratory Rate WNL, Airway Patent, Supplemental Oxygen - CARDIOVASCULAR CV Status: Pulse Rate WNL, Blood Pressure Stable, Elevated Pulse Rate - GASTROINTESTINAL GI Status: No Symptoms - PAIN Pain Score: 0 - POST OP HYDRATION Hydration Status: Adequate & Stable - OBSERVATIONS Free Text/Narrative:: 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 Patient is due his next dose of Sinemet when he is able to swallow
--- NOTE | 2021-06-24 16:15 | PCM.SN.2 ---
- Free Text/Narrative Note: Patient was found to have perforated appendix with small localized abscess, peritonitis and moderate amount of inflammatory fluid in the abdomen. Lap appendectomy performed successfully. He will be admitted for observation and IV antibiotics. Discharge pending clinic improvement. Time Documentation
[2021-06-24] MEDS ORDERED: Sodium Chloride 0.9% 1,000 ML IV ONE (16:30)
--- NOTE | 2021-06-24 16:57 | OR ---
DATE OF OPERATION: 06/24/2021 SURGEON: Blanco Frye MD PREOPERATIVE DIAGNOSIS: Acute appendicitis. POSTOPERATIVE DIAGNOSIS: Acute perforated appendicitis with a small loculated abscess. ANESTHESIA: General anesthesia with local anesthetic consisting of 1% lidocaine. ESTIMATED BLOOD LOSS: 20 mL. COMPLICATIONS: None. INDICATION AND CONSENT: Mr. Quinteros is a 66-year-old male who had abdominal pain, initially periumbilically, then right lower quadrant for the past 3 days. The patient's pain became much worse yesterday and presented to the emergency department overnight and was worked up. White count was 14. CT scan noted acute appendicitis with appendicolith. I was called to see the patient. The patient received preop antibiotics and was taken to the operating room. Prior to doing that, we discussed risks, benefits, and alternatives. Options discussed including antibiotics and appendectomy. The patient wanted to proceed with appendectomy. Informed consent was obtained. DESCRIPTION OF PROCEDURE: The patient was taken to the operating room, placed in supine position, padded appropriately. SCDs were placed and Abi Hugger was placed. Cefoxitin was given for preop antibiotics. Then, general anesthesia was induced. Then, abdomen was prepped and draped in the usual sterile fashion. Time-out was performed before the start of the procedure. Began the procedure by infiltrating local anesthetic in the infraumbilical position. Incision was made. Umbilical stalk was elevated and Veress needle was placed. Abdomen was insufflated to 15 mmHg. Then, a 12 mm trocar was placed here under visualization of the laparoscopic. Abdomen was entered and then laparoscope was placed and the abdomen was surveyed. There were no signs of injury to the bowel due to Veress needle or trocar insertion. Then, there was a moderate amount of inflammatory fluid in the right lower quadrant and pelvis. There was significant inflammation of the segments of small bowels, cecum and proximal ascending colon as well as the anterior parietal peritoneum. This was marked by erythema and deposition of proteinaceous material. However, the cecum, proximal ascending colon or small bowel were not thickened. these changes were more marked on the right abdomen. This suggested localized peritonitis. Two additional 5 mm trocars were placed, one in the left lower quadrant, another one in the suprapubic area. The patient was placed in slight Trendelenburg and left side down, and we focused on the right lower quadrant. There was significant amount of inflammatory change in this area with cecal appendages enveloping the appendix. This was slowly released exposing the appendix which was severely inflamed. There was small perforation at about 1 cm distal to the base of the appendix with leakage of stool and associated small walled- off abscess just next to this area laterally. This area was cleaned with Suction Pig Conveyor Operator device. LigaSure Impact was used to transect the mesoappendix close to the base where the inflammation was mild. The appendix was dissected circumferentially and isolated from surrounding tissues as well as the distal cecum as well. Once this was done, a purple load of Endo-RADHA stapler was used to transect the appendix at its base, proximal to the area of perforation. Specimen was placed in the EndoCatch bag. We then placed the camera and revisited the area of dissection which appeared to be clean. We irrigated copiously this area with 1 L of normal saline to make sure that all the stool that was leaking out has been cleaned. Then, we turned our attention to the rest of the abdomen with an additional 1 L of normal saline. We irrigated the pelvis where there was significant amount of inflammatory fluid, and most of it was suctioned. Then, we inspected the abdomen once again. There were no signs of injury. The patient has small inguinal hernia on the left side that was seen on exploration of the abdomen. Once this was done, the specimen was removed and the infraumbilical incision site was closed at the fascial level with 0 Vicryl stitches using Juan Antonio-Muriel device. Then, the skin at all 3 incision sites were closed with 4-0 Monocryl and Dermabond was then applied. The patient was awoken, extubated, and taken to the PACU for recovery. The patient will be admitted for observation pending return of bowel function. OPERATION PERFORMED: MMODAL /[id number] JASON
[2021-06-24] MEDS: Ibuprofen 600 MG Tab PO SCH (17:42)
[2021-06-24] MEDS: Sodium Chloride 0.9% 1,000 ML IV SCH (17:47)
[2021-06-24] MEDS: Carbidopa/Levodopa 25-100 MG Tab PO SCH ×2 (17:52→20:19)
[2021-06-24] MEDS: Ondansetron 4 MG Tab.DIS PO PRN (18:14)
[2021-06-25] MEDS: Piperacillin/Tazobactam 4.5 GM in Sodium Chloride 0.9% 100 ML IV SCH ×3 (01:08→16:19)
[2021-06-25] MEDS: Ibuprofen 600 MG Tab PO SCH ×3 (01:09→11:36)
[2021-06-25] MEDS: Sodium Chloride 0.9% 1,000 ML IV SCH ×2 (01:13→09:00)
[2021-06-25] MEDS ORDERED: Pantoprazole 40 MG Tab.CR PO SCH (06:00)
[2021-06-25] MEDS ORDERED: Carbidopa/Levodopa 25-100 MG Tab PO SCH ×2 (07:45→09:00)
[2021-06-25] MEDS ORDERED: Docusate Sodium 100 MG Cap PO PRN (08:50)
[2021-06-25] MEDS ORDERED: Aspirin 81 MG Tab.EC PO SCH (09:00)
[2021-06-25] MEDS ORDERED: Non-Formulary Medication 1 Each (Esomeprazole Magnesium [Esomeprazole Magnesium] 40 MG Cap PO SCH (09:00)
[2021-06-25] MEDS ORDERED: Hydrochlorothiazide 25 MG Tab PO SCH (09:00)
[2021-06-25] MEDS ORDERED: Polyethylene Glycol 3350 Powder 17 GM Packet PO SCH (09:15)
[2021-06-25] MEDS: Tamsulosin 0.4 MG Cap.ER PO SCH (09:32)
[2021-06-25] MEDS: Enoxaparin 40 MG/0.4 ML Syringe SUBCUT SCH (09:33)
[2021-06-25] MEDS ORDERED: Hydrochlorothiazide 12.5 MG Cap PO SCH (09:45)
--- NOTE | 2021-06-25 10:31 | PCM48HPAN ---
Post Anesthesia Note - EVALUATION WITHIN 48HRS OF ANESTHETIC Vital Signs in Normal Range: Yes Patient Participated in Evaluation: Yes Respiratory Function Stable: Yes Airway Patent: Yes Cardiovascular Function Stable: Yes Hydration Status Stable: Yes Pain Control Satisfactory: Yes Nausea and Vomiting Control Satisfactory: Yes Mental Status Recovered: Yes Vital Signs: Last Vital Signs Temp 97.7 F 06/25/21 04:29 Pulse 79 06/25/21 04:29 Resp 16 06/25/21 04:29 BP 134/75 06/25/21 04:29 Pulse Ox 92 L 06/25/21 09:27 sitting up in bed. states a little pain, but no nausea.
[2021-06-25] MEDS: Carbidopa/Levodopa 25-100 MG Tab PO SCH ×2 (11:14→16:29)
[2021-06-25] MEDS: Ondansetron 4 MG Tab.DIS PO PRN (13:14)
--- NOTE | 2021-06-25 15:37 | PCM.PN ---
- General Info Date of Service: 06/25/21 Subjective Update: Distended but no nausea or vomiting. Not passing any flatus. still needing supplemental oxygen Functional Status: Reports: Pain Controlled, Tolerating Diet, Ambulating, Urinating - Review of Systems General: Reports: No Symptoms HEENT: Reports: No Symptoms Pulmonary: Reports: No Symptoms Cardiovascular: Reports: No Symptoms Gastrointestinal: Reports: Abdominal Pain Genitourinary: Reports: No Symptoms Musculoskeletal: Reports: No Symptoms Skin: Reports: No Symptoms Neurological: Reports: No Symptoms - Patient Data Vitals - Most Recent: Last Vital Signs Temp 98.1 F 06/25/21 14:05 Pulse 99 06/25/21 14:05 Resp 20 06/25/21 14:05 BP 146/88 H 06/25/21 14:05 Pulse Ox 93 L 06/25/21 14:05 Weight - Most Recent: 105.914 kg I&O - Last 24 Hours: Intake & Output 06/25/21 06/25/21 06/25/21 06:59 14:59 22:59 Intake Total 600 270 Balance 600 270 Lab Results Last 24 Hours: Laboratory Results - last 24 hr 06/25/21 06/25/21 Range/Units 05:16 05:16 WBC 17.73 H (4.23-9.07) K/mm3 RBC 5.17 (4.63-6.08) M/mm3 Hgb 15.0 (13.7-17.5) gm/dl Hct 45.1 (40.1-51.0) % MCV 87.2 D (79.0-92.2) fl MCH 29.0 (25.7-32.2) pg MCHC 33.3 (32.2-35.5) g/dl RDW Std Deviation 44.4 H (35.1-43.9) fL Plt Count 193 (163-337) K/mm3 MPV 10.4 (9.4-12.3) fl Neut % (Auto) 91.0 H (34.0-67.9) % Lymph % (Auto) 3.4 L (21.8-53.1) % [place] % (Auto) 5.3 (5.3-12.2) % Eos % (Auto) 0 L (0.8-7.0) Baso % (Auto) 0.0 L (0.1-1.2) % Neut # (Auto) 16.14 H (1.78-5.38) K/mm3 Lymph # (Auto) 0.60 L (1.32-3.57) K/mm3 [place] # (Auto) 0.94 H (0.30-0.82) K/mm3 Eos # (Auto) 0.00 L (0.04-0.54) K/mm3 Baso # (Auto) 0.00 L (0.01-0.08) K/mm3 Manual Slide Review Abnormal smear Sodium 134 L (136-145) mEq/L Potassium 4.4 (3.5-5.1) mEq/L Chloride 102 (98-107) mEq/L Carbon Dioxide 27 (21-32) mEq/L Anion Gap 9.4 (5-15) BUN 22 H (7-18) mg/dL Creatinine 1.3 (0.7-1.3) mg/dL Est Cr Clr Drug Dosing 59.69 mL/min Estimated GFR (MDRD) 55 (>60) mL/min BUN/Creatinine Ratio 16.9 (14-18) Glucose 139 H (70-99) mg/dL Calcium 8.3 L (8.5-10.1) mg/dL Phosphorus 2.8 (2.6-4.7) mg/dL Med Orders - Current: Current Medications Aspirin (Aspirin 81 Mg Tab.Ec) 81 mg PO DAILY [facility] Last Admin: 06/25/21 09:32 Dose: 81 mg Documented by: Carbidopa/Levodopa (Carbidopa/Levodopa 25-100 Mg Tab) 1.5 tab PO 0600,1100,1600 [facility] Last Admin: 06/25/21 11:14 Dose: 1.5 tab Documented by: Docusate Sodium (Docusate Sodium 100 Mg Cap) 100 mg PO DAILY PRN PRN Reason: Constipation Enoxaparin Sodium (Enoxaparin 40 Mg/0.4 Ml Syringe) 40 mg SUBCUT DAILY [facility] Last Admin: 06/25/21 09:33 Dose: 40 mg Documented by: Hydrochlorothiazide (Hydrochlorothiazide 12.5 Mg Cap) 12.5 mg PO DAILY [facility] Last Admin: 06/25/21 09:36 Dose: Not Given Documented by: Hydromorphone HCl (Hydromorphone 0.5 Mg/0.5 Ml Syringe) 0.5 mg IVPUSH Q2H PRN PRN Reason: Pain (severe 7-10) Sodium Chloride (Normal Saline) 1,000 mls @ 125 mls/hr IV ASDIRECTED [facility] Last Admin: 06/25/21 09:00 Dose: 125 mls/hr Documented by: Piperacillin Sod/Tazobactam (Sod 4.5 gm/ Sodium Chloride) 100 mls @ 25 mls/hr I V Q8H [facility] Last Admin: 06/25/21 09:31 Dose: 25 mls/hr Documented by: Ibuprofen (Ibuprofen 600 Mg Tab) 600 mg PO Q6H [facility] Last Admin: 06/25/21 11:36 Dose: 600 mg Documented by: Ondansetron HCl (Ondansetron 4 Mg Tab.Dis) 4 mg PO Q4H PRN PRN Reason: nausea, able to take PO Last Admin: 06/25/21 13:14 Dose: 4 mg Documented by: Oxycodone/Acetaminophen (Acetaminophen/Oxycodone 325-5 Mg Tab) 1 tab PO Q4H PRN PRN Reason: Pain (moderate 4-6) Pantoprazole Sodium (Pantoprazole 40 Mg Tab.Cr) 40 mg PO ACBREAKFAST [facility] Last Admin: 06/25/21 06:21 Dose: 40 mg Documented by: Polyethylene Glycol (Polyethylene Glycol 3350 Powder 17 Gm Packet) 17 gm PO DAILY [facility] Last Admin: 06/25/21 09:34 Dose: 17 gm Documented by: Tamsulosin HCl (Tamsulosin 0.4 Mg Cap.Er) 0.4 mg PO DAILY [facility] Last Admin: 06/25/21 09:32 Dose: 0.4 mg Documented by: Discontinued Medications Albuterol (Albuterol 6.7 Gm Inhaler) Confirm Administered Dose 6.7 gm INH .STK- MED ONE Stop: 06/24/21 15:42 Bupivacaine HCl/Epinephrine Bitart (Bupivacaine 0.5%/Epinephrine 1:200,000 50 Ml Mdv) Confirm Administered Dose 50 ml .ROUTE .STK-MED ONE Stop: 06/24/21 13:27 Last Admin: 06/24/21 14:11 Dose: 50 ml Documented by: Carbidopa/Levodopa (Carbidopa/Levodopa 25-100 Mg Tab) 1.5 tab PO TID [facility] Last Admin: 06/24/21 20:19 Dose: 1.5 tab Documented by: Carbidopa/Levodopa (Carbidopa/Levodopa 25-100 Mg Tab) 1.5 tab PO 0600,1100,1600 [facility] Last Admin: 06/25/21 07:50 Dose: 1.5 tab Documented by: Carbidopa/Levodopa (Carbidopa/Levodopa 25-100 Mg Tab) 1.5 tab PO TID [facility] Dexamethasone (Dexamethasone 4 Mg/Ml 5 Ml Mdv) Confirm Administered Dose 20 mg .ROUTE .STK-MED ONE Stop: 06/24/21 12:24 Diatrizoate Meglum/Diatrizoate Sod (Diatrizoate Meglumine/Diatrizoate Sodium 37% 120 Ml Bottle) 120 ml PO ONETIME ONE Stop: 06/24/21 03:43 Last Admin: 06/24/21 03:43 Dose: 120 ml Documented by: Fentanyl (Fentanyl 250 Mcg/5 Ml Sdv) Confirm Administered Dose 250 mcg .ROUTE .STK-MED ONE Stop: 06/24/21 12:20 Fentanyl (Fentanyl 100 Mcg/2 Ml Sdv) 50 mcg IVPUSH Q5M PRN PRN Reason: Pain Stop: 06/24/21 23:00 Glycopyrrolate (Glycopyrrolate 0.2 Mg/Ml 2 Ml Syringe) Confirm Administered Dose 0.8 mg .ROUTE .STK-MED ONE Stop: 06/24/21 14:15 Hydrochlorothiazide (Hydrochlorothiazide 25 Mg Tab) 12.5 mg PO DAILY [facility] Stop: 06/25/21 11:00 Last Admin: 06/25/21 09:34 Dose: 12.5 mg Documented by: Hydromorphone HCl (Hydromorphone 0.5 Mg/0.5 Ml Syringe) 0.5 mg IVPUSH ONETIME ONE Stop: 06/24/21 02:16 Last Admin: 06/24/21 02:42 Dose: 0.5 mg Documented by: Hydromorphone HCl (Hydromorphone 0.5 Mg/0.5 Ml Syringe) 0.5 mg IVPUSH ONETIME ONE Stop: 06/24/21 05:28 Last Admin: 06/24/21 05:44 Dose: 0.5 mg Documented by: Hydromorphone HCl (Hydromorphone 0.5 Mg/0.5 Ml Syringe) 0.5 mg IVPUSH ONETIME ONE Stop: 06/24/21 08:20 Last Admin: 06/24/21 08:23 Dose: 0.5 mg Documented by: Hydromorphone HCl (Hydromorphone 1 Mg/Ml Syringe) 1 mg IVPUSH ONETIME ONE Stop: 06/24/21 09:45 Last Admin: 06/24/21 09:48 Dose: 1 mg Documented by: Hydromorphone HCl (Hydromorphone 0.5 Mg/0.5 Ml Syringe) Confirm Administered Dose 0.5 mg .ROUTE .STK-MED ONE Stop: 06/24/21 14:30 Hydromorphone HCl (Hydromorphone 0.5 Mg/0.5 Ml Syringe) Confirm Administered Dose 0.5 mg .ROUTE .STK-MED ONE Stop: 06/24/21 14:58 Hydromorphone HCl (Hydromorphone 0.5 Mg/0.5 Ml Syringe) 0.5 mg IVPUSH Q10M PRN PRN Reason: Pain (severe 7-10) Stop: 06/24/21 23:00 Sodium Chloride (Normal Saline) 1,000 mls @ 1,000 mls/hr IV .BOLUS STA Stop: 06/24/21 03:13 Last Admin: 06/24/21 02:40 Dose: 1,000 mls/hr Documented by: Cefoxitin Sodium 2 gm/ Premix 50 mls @ 100 mls/hr IV ONETIME ONE Stop: 06/24/21 05:00 Last Admin: 06/24/21 04:50 Dose: 100 mls/hr Documented by: Lactated Ringer's (Ringers, Lactated) Confirm Administered Dose 1,000 mls @ as directed .ROUTE .STK-MED ONE Stop: 06/24/21 14:13 Lactated Ringer's (Ringers, Lactated) Confirm Administered Dose 1,000 mls @ as directed .ROUTE .STK-MED ONE Stop: 06/24/21 14:13 Lactated Ringer's (Ringers, Lactated) 1,000 mls @ 125 mls/hr IV ASDIRECTED [facility] Piperacillin Sod/Tazobactam (Sod 4.5 gm/ Sodium Chloride) 100 mls @ 200 mls/hr IV ONETIME ONE Stop: 06/24/21 16:31 Last Admin: 06/24/21 17:37 Dose: 200 mls/hr Documented by: Sodium Chloride (Normal Saline) 1,000 mls @ 1,000 mls/hr IV ONETIME ONE Stop: 06/24/21 17:29 Last Admin: 06/24/21 16:30 Dose: 1,000 mls/hr Documented by: Iopamidol (Iopamidol 612 Mg/Ml 50 Ml Sdv) 50 ml IVPUSH ONETIME ONE Stop: 06/24/21 03:43 Last Admin: 06/24/21 03:43 Dose: 50 ml Documented by: Iopamidol (Iopamidol 612 Mg/Ml 100 Ml Bottle) 100 ml IVPUSH ONETIME ONE Stop: 06/24/21 03:43 Last Admin: 06/24/21 03:43 Dose: 100 ml Documented by: Ketamine HCl (Ketamine 500 Mg/10 Ml Mdv) Confirm Administered Dose 500 mg .ROUTE .STK-MED ONE Stop: 06/24/21 14:31 Ketorolac Tromethamine (Ketorolac 30 Mg/Ml Sdv) Confirm Administered Dose 30 mg .ROUTE .STK-MED ONE Stop: 06/24/21 12:37 Lidocaine HCl (Lidocaine 1% 5 Ml Sdv) Confirm Administered Dose 5 ml .ROUTE .STK-MED ONE Stop: 06/24/21 12:22 Midazolam HCl (Midazolam 1 Mg/Ml 2 Ml Sdv) Confirm Administered Dose 2 mg .ROUTE .STK-MED ONE Stop: 06/24/21 12:20 Neostigmine Methylsulfate (Neostigmine Methylsulfate 5 Mg/5 Ml Syringe) Confirm Administered Dose 5 mg .ROUTE .STK-MED ONE Stop: 06/24/21 14:15 Ondansetron HCl (Ondansetron 4 Mg/2 Ml Sdv) 4 mg IVPUSH ONETIME ONE Stop: 06/24/21 02:16 Last Admin: 06/24/21 02:42 Dose: 4 mg Documented by: Ondansetron HCl (Ondansetron 4 Mg/2 Ml Sdv) 4 mg IVPUSH ONETIME ONE Stop: 06/24/21 09:45 Last Admin: 06/24/21 09:48 Dose: 4 mg Documented by: Ondansetron HCl (Ondansetron 4 Mg/2 Ml Sdv) Confirm Administered Dose 4 mg .ROUTE .STK-MED ONE Stop: 06/24/21 12:24 Ondansetron HCl (Ondansetron 4 Mg/2 Ml Sdv) 4 mg IVPUSH ONETIME PRN PRN Reason: Nausea/Vomiting Stop: 06/24/21 23:00 Polyethylene Glycol (Polyethylene Glycol 3350 Powder 17 Gm Packet) 17 gm PO DAILY PRN PRN Reason: Constipation Propofol (Propofol 200 Mg/20 Ml Sdv) Confirm Administered Dose 200 mg .ROUTE .STK-MED ONE Stop: 06/24/21 12:20 Rocuronium [place] (Rocuronium 50 Mg/5 Ml Vial) Confirm Administered Dose 50 mg .ROUTE .STK-MED ONE Stop: 06/24/21 12:23 Sodium Chloride (Sodium Chloride 0.9% 10 Ml Syringe) 10 ml FLUSH ASDIRECTED PRN PRN Reason: Keep Vein Open Stop: 06/24/21 18:00 Last Admin: 06/24/21 03:43 Dose: 10 ml Documented by: Sodium Chloride (Sodium Chloride 0.9% 10 Ml Sdv) 10 ml FLUSH ONETIME ONE Stop: 06/24/21 03:43 Last Admin: 06/24/21 04:00 Dose: 10 ml Documented by: - Exam General: Alert, Oriented, Cooperative Lungs: Clear to Auscultation, Normal Respiratory Effort Cardiovascular: Regular Rate, Regular Rhythm, No Murmurs GI/Abdominal Exam: Soft, Distended, Other (no guarding, no rebound tenderness) - Patient Data Lab Results Last 24 hrs: Laboratory Results - last 24 hr 06/25/21 06/25/21 Range/Units 05:16 05:16 WBC 17.73 H (4.23-9.07) K/mm3 RBC 5.17 (4.63-6.08) M/mm3 Hgb 15.0 (13.7-17.5) gm/dl Hct 45.1 (40.1-51.0) % MCV 87.2 D (79.0-92.2) fl MCH 29.0 (25.7-32.2) pg MCHC 33.3 (32.2-35.5) g/dl RDW Std Deviation 44.4 H (35.1-43.9) fL Plt Count 193 (163-337) K/mm3 MPV 10.4 (9.4-12.3) fl Neut % (Auto) 91.0 H (34.0-67.9) % Lymph % (Auto) 3.4 L (21.8-53.1) % [place] % (Auto) 5.3 (5.3-12.2) % Eos % (Auto) 0 L (0.8-7.0) Baso % (Auto) 0.0 L (0.1-1.2) % Neut # (Auto) 16.14 H (1.78-5.38) K/mm3 Lymph # (Auto) 0.60 L (1.32-3.57) K/mm3 [place] # (Auto) 0.94 H (0.30-0.82) K/mm3 Eos # (Auto) 0.00 L (0.04-0.54) K/mm3 Baso # (Auto) 0.00 L (0.01-0.08) K/mm3 Manual Slide Review Abnormal smear Sodium 134 L (136-145) mEq/L Potassium 4.4 (3.5-5.1) mEq/L Chloride 102 (98-107) mEq/L Carbon Dioxide 27 (21-32) mEq/L Anion Gap 9.4 (5-15) BUN 22 H (7-18) mg/dL Creatinine 1.3 (0.7-1.3) mg/dL Est Cr Clr Drug Dosing 59.69 mL/min Estimated GFR (MDRD) 55 (>60) mL/min BUN/Creatinine Ratio 16.9 (14-18) Glucose 139 H (70-99) mg/dL Calcium 8.3 L (8.5-10.1) mg/dL Phosphorus 2.8 (2.6-4.7) mg/dL Result Diagrams: 06/25/21 05:16 06/25/21 05:16 Sepsis Event Note - Evaluation Sepsis Screening Result: No Definite Risk - Focused Exam Vital Signs: Vital Signs Temp Pulse Resp BP Pulse Ox Pulse Ox 06/25/21 14:05 98.1 F 99 20 146/88 H 93 L 06/25/21 11:20 98.4 F 95 154/91 H 92 L 06/25/21 11:19 95 16 150/85 H 92 L 06/25/21 09:27 92 L 06/25/21 04:29 97.7 F 79 16 134/75 91 L - Problem List Review Problem List Initiated/Reviewed/Updated: No - My Orders Last 24 Hours: My Active Orders 06/24/21 15:49 Patient Status [ADT] Routine Ambulate [RC] Q4H May Shower [RC] ASDIRECTED Up ad Aylin [RC] ASDIRECTED VTE/DVT Education [RC] Vital Signs [RC] Q4HR Acetaminophen/oxyCODONE [Percocet 325-5 MG] 1 tab PO Q4H PRN HYDROmorphone [Dilaudid] 0.5 mg IVPUSH Q2H PRN Ondansetron [Zofran ODT] 4 mg PO Q4H PRN Resuscitation Status Routine 06/24/21 15:50 Sequential Compression Device [OM.PC] Per Unit Routine 06/24/21 15:51 Antiembolic Devices [RC] PER UNIT ROUTINE 06/24/21 16:15 Sodium Chloride 0.9% [Normal Saline] 1,000 ml IV ASDIRECTED 06/24/21 Dinner Clear Liquid Diet [DIET] 06/24/21 18:00 Ibuprofen [Motrin] 600 mg PO Q6H 06/25/21 00:00 Piperacillin/Tazobactam [Piperacil-Tazobact] 4.5 gm Sodium Chloride 0.9% [Normal Saline] 100 ml IV Q8H 06/25/21 06:00 Pantoprazole [ProTONIX] 40 mg PO ACBREAKFAST 06/25/21 08:50 Docusate Sodium [Colace] 100 mg PO DAILY PRN 06/25/21 09:00 Aspirin [Halfprin] 81 mg PO DAILY Enoxaparin [Lovenox] 40 mg SUBCUT DAILY Tamsulosin [Flomax] 0.4 mg PO DAILY 06/25/21 09:08 Incentive Spirometry [RT Incentive Spirometry] [RC] Q2HWA 06/25/21 09:15 polyethylene glycoL 3350 [MiraLAX] 17 gm PO DAILY 06/25/21 09:45 hydroCHLOROthiazide 12.5 mg PO DAILY 06/25/21 11:00 Carbidopa/Levodopa [Sinemet 25-100 mg] 1.5 tab PO 0600,1100,1600 - Assessment Assessment:: POD1 s/p lap appendectomy for perforated acute appendicitis with small localized abscess and peritonitis - Plan Plan:: - continue clear liquid diet. I counselled the patient to not take too much PO as his abdomen is distended due to post operative ileus - Will do Toradol as a first line pain reliever - continue IVF for now - COntinue antibiotics - Resume some home meds - Dispo pending clinical improvement
[2021-06-25] MEDS ORDERED: Ketorolac 15 MG/ML SDV IVPUSH SCH (16:00)
--- NOTE | 2021-06-25 17:39 | PCM.SN.2 ---
- Free Text/Narrative Note: Patient has developed paralytic post op ileus. His abdomen is distended and is having severe reflux symptoms. Has a small bowel movement but no flatus. has ambulated twice. Plan: Bowel rest - NPO with IVF switched to D5 1/2 NS with 20K at 100 cc/hr. Ok to have ice chips for comfort - place NGT - Continue to monitor Time Documentation
[2021-06-25] MEDS: D5 1/2 NS w/ 20 mEq/L KCl 1,000 ML IV SCH (18:33)
--- NOTE | 2021-06-25 19:33 | CR ---
Chest: Portable view of the chest was obtained. Comparison: No prior chest x-ray is available. Poor inspiratory effort is seen. No definite acute parenchymal change is otherwise identified. Heart size and mediastinum are within normal limits. Nasogastric tube is seen which courses into the stomach. No nasogastric tube coiling is seen. No discrete osseous abnormality is seen. Impression: 1. Poor inspiratory effort with no definite acute parenchymal change being seen. 2. Nasogastric tube is seen which shows no coiling. Tip lies within the stomach. Diagnostic code #2
--- NOTE | 2021-06-25 19:33 | CR ---
Abdomen: Portable upright view of the abdomen was obtained. Comparison: Prior abdominal x-ray of 06/24/21, no prior abdominal x-ray. Slightly prominent gas within the small bowel is seen most likely representing an ileus. Nasogastric tube is seen with the tip lying within the stomach. Bony structures show nothing acute. Impression: 1. Probable small bowel ileus. 2. Tip of nasogastric tube lies within the stomach. Diagnostic code #2
[2021-06-25] MEDS ORDERED: Lactated Ringers 1,000 ML ONE (20:07)
[2021-06-25] MEDS ORDERED: Lactated Ringers 1,000 ML IV ONE (20:17)
[2021-06-25] MEDS: Ketorolac 15 MG/ML SDV IVPUSH SCH (23:12)
[2021-06-26] MEDS: HYDROmorphone 0.5 MG/0.5 ML Syringe IVPUSH PRN ×3 (01:42→20:02)
[2021-06-26] MEDS: Piperacillin/Tazobactam 4.5 GM in Sodium Chloride 0.9% 100 ML IV SCH ×3 (01:45→17:03)
[2021-06-26] MEDS: Ketorolac 15 MG/ML SDV IVPUSH SCH ×3 (05:17→17:03)
[2021-06-26] MEDS: D5 1/2 NS w/ 20 mEq/L KCl 1,000 ML IV SCH ×2 (05:21→15:25)
--- NOTE | 2021-06-26 08:27 | PCM.PN ---
- General Info Date of Service: 06/26/21 Subjective Update: Patient felt better after NGT placement last night but he was transferred from the OB floor to Med/Surg floor and his condition started to revert back with more abdominal distention and discomfort. No fevers or chills. Functional Status: Reports: Ambulating, Urinating - Review of Systems General: Reports: Other (reflux symptoms) HEENT: Reports: No Symptoms Pulmonary: Reports: Shortness of Breath (due to inability to take deep breaths) Cardiovascular: Reports: No Symptoms Gastrointestinal: Reports: Abdominal Pain Genitourinary: Reports: No Symptoms Musculoskeletal: Reports: No Symptoms Skin: Reports: No Symptoms - Patient Data Vitals - Most Recent: Last Vital Signs Temp 97.5 F 06/26/21 03:48 Pulse 87 06/26/21 03:48 Resp 20 06/26/21 03:48 BP 142/91 H 06/26/21 03:48 Pulse Ox 96 06/26/21 03:48 Weight - Most Recent: 105.823 kg I&O - Last 24 Hours: Intake & Output 06/25/21 06/26/21 06/26/21 22:59 06:59 14:59 Intake Total 1750 1206 Output Total 1600 1250 Balance 150 -44 Lab Results Last 24 Hours: Laboratory Results - last 24 hr 06/26/21 06/26/21 Range/Units 06:21 06:21 WBC 14.14 H (4.23-9.07) K/mm3 RBC 5.14 (4.63-6.08) M/mm3 Hgb 14.8 (13.7-17.5) gm/dl Hct 44.6 (40.1-51.0) % MCV 86.8 (79.0-92.2) fl MCH 28.8 (25.7-32.2) pg MCHC 33.2 (32.2-35.5) g/dl RDW Std Deviation 43.4 (35.1-43.9) fL Plt Count 213 (163-337) K/mm3 MPV 10.6 (9.4-12.3) fl Neut % (Auto) 90.7 H (34.0-67.9) % Lymph % (Auto) 3.9 L (21.8-53.1) % [place] % (Auto) 4.7 L (5.3-12.2) % Eos % (Auto) 0.4 L (0.8-7.0) Baso % (Auto) 0.1 (0.1-1.2) % Neut # (Auto) 12.83 H (1.78-5.38) K/mm3 Lymph # (Auto) 0.55 L (1.32-3.57) K/mm3 [place] # (Auto) 0.67 (0.30-0.82) K/mm3 Eos # (Auto) 0.05 (0.04-0.54) K/mm3 Baso # (Auto) 0.01 (0.01-0.08) K/mm3 Sodium 133 L (136-145) mEq/L Potassium 4.0 (3.5-5.1) mEq/L Chloride 100 (98-107) mEq/L Carbon Dioxide 27 (21-32) mEq/L Anion Gap 10.0 (5-15) BUN 27 H (7-18) mg/dL Creatinine 1.1 (0.7-1.3) mg/dL Est Cr Clr Drug Dosing 70.55 mL/min Estimated GFR (MDRD) > 60 (>60) mL/min BUN/Creatinine Ratio 24.5 H (14-18) Glucose 119 H (70-99) mg/dL Calcium 8.8 (8.5-10.1) mg/dL Phosphorus 2.4 L (2.6-4.7) mg/dL Magnesium 2.2 (1.8-2.4) mg/dL Med Orders - Current: Current Medications Carbidopa/Levodopa (Carbidopa/Levodopa 25-100 Mg Tab) 1.5 tab PO 0600,1100,1600 [facility] Last Admin: 06/25/21 16:29 Dose: 1.5 tab Documented by: Enoxaparin Sodium (Enoxaparin 40 Mg/0.4 Ml Syringe) 40 mg SUBCUT DAILY [facility] Last Admin: 06/25/21 09:33 Dose: 40 mg Documented by: Hydrochlorothiazide (Hydrochlorothiazide 12.5 Mg Cap) 12.5 mg PO DAILY [facility] Last Admin: 06/25/21 09:36 Dose: Not Given Documented by: Hydromorphone HCl (Hydromorphone 0.5 Mg/0.5 Ml Syringe) 0.5 mg IVPUSH Q6H PRN PRN Reason: Pain Last Admin: 06/26/21 01:42 Dose: 0.5 mg Documented by: Potassium Chloride/Dextrose/Sod Cl (D5 1/2 Ns W/ 20 Meq/L Kcl) 1,000 mls @ 100 mls/hr IV ASDIRECTED [facility] Last Admin: 06/26/21 05:21 Dose: 100 mls/hr Documented by: Piperacillin Sod/Tazobactam (Sod 4.5 gm/ Sodium Chloride) 100 mls @ 25 mls/hr IV Q8H [facility] Last Admin: 06/26/21 01:45 Dose: 25 mls/hr Documented by: Ketorolac Tromethamine (Ketorolac 15 Mg/Ml Sdv) 15 mg IVPUSH Q6H [facility] Last Admin: 06/26/21 05:17 Dose: 15 mg Documented by: Ondansetron HCl (Ondansetron 4 Mg Tab.Dis) 4 mg PO Q4H PRN PRN Reason: nausea, able to take PO Last Admin: 06/25/21 13:14 Dose: 4 mg Documented by: Pantoprazole Sodium (Pantoprazole 40 Mg Vial) 40 mg IVPUSH DAILY [facility] Polyethylene Glycol (Polyethylene Glycol 3350 Powder 17 Gm Packet) 17 gm PO DAILY [facility] Last Admin: 06/25/21 09:34 Dose: 17 gm Documented by: Tamsulosin HCl (Tamsulosin 0.4 Mg Cap.Er) 0.4 mg PO DAILY [facility] Last Admin: 06/25/21 09:32 Dose: 0.4 mg Documented by: Discontinued Medications Albuterol (Albuterol 6.7 Gm Inhaler) Confirm Administered Dose 6.7 gm INH .STK- MED ONE Stop: 06/24/21 15:42 Aspirin (Aspirin 81 Mg Tab.Ec) 81 mg PO DAILY [facility] Last Admin: 06/25/21 09:32 Dose: 81 mg Documented by: Bupivacaine HCl/Epinephrine Bitart (Bupivacaine 0.5%/Epinephrine 1:200,000 50 Ml Mdv) Confirm Administered Dose 50 ml .ROUTE .STK-MED ONE Stop: 06/24/21 13:27 Last Admin: 06/24/21 14:11 Dose: 50 ml Documented by: Carbidopa/Levodopa (Carbidopa/Levodopa 25-100 Mg Tab) 1.5 tab PO TID [facility] Last Admin: 06/24/21 20:19 Dose: 1.5 tab Documented by: Carbidopa/Levodopa (Carbidopa/Levodopa 25-100 Mg Tab) 1.5 tab PO 0600,1100,1600 [facility] Last Admin: 06/25/21 07:50 Dose: 1.5 tab Documented by: Carbidopa/Levodopa (Carbidopa/Levodopa 25-100 Mg Tab) 1.5 tab PO TID [facility] Dexamethasone (Dexamethasone 4 Mg/Ml 5 Ml Mdv) Confirm Administered Dose 20 mg .ROUTE .STK-MED ONE Stop: 06/24/21 12:24 Diatrizoate Meglum/Diatrizoate Sod (Diatrizoate Meglumine/Diatrizoate Sodium 37% 120 Ml Bottle) 120 ml PO ONETIME ONE Stop: 06/24/21 03:43 Last Admin: 06/24/21 03:43 Dose: 120 ml Documented by: Docusate Sodium (Docusate Sodium 100 Mg Cap) 100 mg PO DAILY PRN PRN Reason: Constipation Fentanyl (Fentanyl 250 Mcg/5 Ml Sdv) Confirm Administered Dose 250 mcg .ROUTE .STK-MED ONE Stop: 06/24/21 12:20 Fentanyl (Fentanyl 100 Mcg/2 Ml Sdv) 50 mcg IVPUSH Q5M PRN PRN Reason: Pain Stop: 06/24/21 23:00 Glycopyrrolate (Glycopyrrolate 0.2 Mg/Ml 2 Ml Syringe) Confirm Administered Dose 0.8 mg .ROUTE .STK-MED ONE Stop: 06/24/21 14:15 Hydrochlorothiazide (Hydrochlorothiazide 25 Mg Tab) 12.5 mg PO DAILY [facility] Stop: 06/25/21 11:00 Last Admin: 06/25/21 09:34 Dose: 12.5 mg Documented by: Hydromorphone HCl (Hydromorphone 0.5 Mg/0.5 Ml Syringe) 0.5 mg IVPUSH ONETIME ONE Stop: 06/24/21 02:16 Last Admin: 06/24/21 02:42 Dose: 0.5 mg Documented by: Hydromorphone HCl (Hydromorphone 0.5 Mg/0.5 Ml Syringe) 0.5 mg IVPUSH ONETIME ONE Stop: 06/24/21 05:28 Last Admin: 06/24/21 05:44 Dose: 0.5 mg Documented by: Hydromorphone HCl (Hydromorphone 0.5 Mg/0.5 Ml Syringe) 0.5 mg IVPUSH ONETIME ONE Stop: 06/24/21 08:20 Last Admin: 06/24/21 08:23 Dose: 0.5 mg Documented by: Hydromorphone HCl (Hydromorphone 1 Mg/Ml Syringe) 1 mg IVPUSH ONETIME ONE Stop: 06/24/21 09:45 Last Admin: 06/24/21 09:48 Dose: 1 mg Documented by: Hydromorphone HCl (Hydromorphone 0.5 Mg/0.5 Ml Syringe) Confirm Administered Dose 0.5 mg .ROUTE .STK-MED ONE Stop: 06/24/21 14:30 Hydromorphone HCl (Hydromorphone 0.5 Mg/0.5 Ml Syringe) Confirm Administered Dose 0.5 mg .ROUTE .STK-MED ONE Stop: 06/24/21 14:58 Hydromorphone HCl (Hydromorphone 0.5 Mg/0.5 Ml Syringe) 0.5 mg IVPUSH Q10M PRN PRN Reason: Pain (severe 7-10) Stop: 06/24/21 23:00 Hydromorphone HCl (Hydromorphone 0.5 Mg/0.5 Ml Syringe) 0.5 mg IVPUSH Q2H PRN PRN Reason: Pain (severe 7-10) Sodium Chloride (Normal Saline) 1,000 mls @ 1,000 mls/hr IV .BOLUS STA Stop: 06/24/21 03:13 Last Admin: 06/24/21 02:40 Dose: 1,000 mls/hr Documented by: Cefoxitin Sodium 2 gm/ Premix 50 mls @ 100 mls/hr IV ONETIME ONE Stop: 06/24/21 05:00 Last Admin: 06/24/21 04:50 Dose: 100 mls/hr Documented by: Lactated Ringer's (Ringers, Lactated) Confirm Administered Dose 1,000 mls @ as directed .ROUTE .STK-MED ONE Stop: 06/24/21 14:13 Lactated Ringer's (Ringers, Lactated) Confirm Administered Dose 1,000 mls @ as directed .ROUTE .STK-MED ONE Stop: 06/24/21 14:13 Lactated Ringer's (Ringers, Lactated) 1,000 mls @ 125 mls/hr IV ASDIRECTED [facility] Piperacillin Sod/Tazobactam (Sod 4.5 gm/ Sodium Chloride) 100 mls @ 200 mls/hr IV ONETIME ONE Stop: 06/24/21 16:31 Last Admin: 06/24/21 17:37 Dose: 200 mls/hr Documented by: Sodium Chloride (Normal Saline) 1,000 mls @ 125 mls/hr IV ASDIRECTED [facility] Last Admin: 06/25/21 09:00 Dose: 125 mls/hr Documented by: Piperacillin Sod/Tazobactam (Sod 4.5 gm/ Sodium Chloride) 100 mls @ 25 mls/hr IV Q8H [facility] Last Admin: 06/25/21 16:19 Dose: 25 mls/hr Documented by: Sodium Chloride (Normal Saline) 1,000 mls @ 1,000 mls/hr IV ONETIME ONE Stop: 06/24/21 17:29 Last Admin: 06/24/21 16:30 Dose: 1,000 mls/hr Documented by: Lactated Ringer's (Ringers, Lactated) 1,000 mls @ 999 mls/hr IV BOLUS ONE Stop: 06/25/21 21:17 Last Admin: 06/25/21 20:18 Dose: 999 mls/hr Documented by: Lactated Ringer's (Ringers, Lactated) Confirm Administered Dose 1,000 mls @ as directed .ROUTE .STK-MED ONE Stop: 06/25/21 20:08 Last Admin: 06/25/21 20:18 Dose: Not Given Documented by: Ibuprofen (Ibuprofen 600 Mg Tab) 600 mg PO Q6H [facility] Last Admin: 06/25/21 11:36 Dose: 600 mg Documented by: Iopamidol (Iopamidol 612 Mg/Ml 50 Ml Sdv) 50 ml IVPUSH ONETIME ONE Stop: 06/24/21 03:43 Last Admin: 06/24/21 03:43 Dose: 50 ml Documented by: Iopamidol (Iopamidol 612 Mg/Ml 100 Ml Bottle) 100 ml IVPUSH ONETIME ONE Stop: 06/24/21 03:43 Last Admin: 06/24/21 03:43 Dose: 100 ml Documented by: Ketamine HCl (Ketamine 500 Mg/10 Ml Mdv) Confirm Administered Dose 500 mg .ROUTE .STK-MED ONE Stop: 06/24/21 14:31 Ketorolac Tromethamine (Ketorolac 30 Mg/Ml Sdv) Confirm Administered Dose 30 mg .ROUTE .STK-MED ONE Stop: 06/24/21 12:37 Ketorolac Tromethamine (Ketorolac 15 Mg/Ml Sdv) 15 mg IVPUSH Q6H [facility] Last Admin: 06/25/21 17:45 Dose: 15 mg Documented by: Lidocaine HCl (Lidocaine 1% 5 Ml Sdv) Confirm Administered Dose 5 ml .ROUTE .STK-MED ONE Stop: 06/24/21 12:22 Midazolam HCl (Midazolam 1 Mg/Ml 2 Ml Sdv) Confirm Administered Dose 2 mg .ROUTE .STK-MED ONE Stop: 06/24/21 12:20 Neostigmine Methylsulfate (Neostigmine Methylsulfate 5 Mg/5 Ml Syringe) Confirm Administered Dose 5 mg .ROUTE .STK-MED ONE Stop: 06/24/21 14:15 Ondansetron HCl (Ondansetron 4 Mg/2 Ml Sdv) 4 mg IVPUSH ONETIME ONE Stop: 06/24/21 02:16 Last Admin: 06/24/21 02:42 Dose: 4 mg Documented by: Ondansetron HCl (Ondansetron 4 Mg/2 Ml Sdv) 4 mg IVPUSH ONETIME ONE Stop: 06/24/21 09:45 Last Admin: 06/24/21 09:48 Dose: 4 mg Documented by: Ondansetron HCl (Ondansetron 4 Mg/2 Ml Sdv) Confirm Administered Dose 4 mg .ROUTE .STK-MED ONE Stop: 06/24/21 12:24 Ondansetron HCl (Ondansetron 4 Mg/2 Ml Sdv) 4 mg IVPUSH ONETIME PRN PRN Reason: Nausea/Vomiting Stop: 06/24/21 23:00 Oxycodone/Acetaminophen (Acetaminophen/Oxycodone 325-5 Mg Tab) 1 tab PO Q4H PRN PRN Reason: Pain (moderate 4-6) Pantoprazole Sodium (Pantoprazole 40 Mg Tab.Cr) 40 mg PO ACBREAKFAST [facility] Last Admin: 06/25/21 06:21 Dose: 40 mg Documented by: Polyethylene Glycol (Polyethylene Glycol 3350 Powder 17 Gm Packet) 17 gm PO DAILY PRN PRN Reason: Constipation Propofol (Propofol 200 Mg/20 Ml Sdv) Confirm Administered Dose 200 mg .ROUTE .STK-MED ONE Stop: 06/24/21 12:20 Rocuronium [place] (Rocuronium 50 Mg/5 Ml Vial) Confirm Administered Dose 50 mg .ROUTE .STK-MED ONE Stop: 06/24/21 12:23 Sodium Chloride (Sodium Chloride 0.9% 10 Ml Syringe) 10 ml FLUSH ASDIRECTED PRN PRN Reason: Keep Vein Open Stop: 06/24/21 18:00 Last Admin: 06/24/21 03:43 Dose: 10 ml Documented by: Sodium Chloride (Sodium Chloride 0.9% 10 Ml Sdv) 10 ml FLUSH ONETIME ONE Stop: 06/24/21 03:43 Last Admin: 06/24/21 04:00 Dose: 10 ml Documented by: - Exam Quality Assessment: Supplemental Oxygen General: Alert, Oriented, Cooperative, Mild Distress Lungs: Normal Respiratory Effort Cardiovascular: Regular Rate, Regular Rhythm GI/Abdominal Exam: Distended, Tender Wound/Incisions: Healing Well, Dressing Dry and Intact, No Drainage Psy/Mental Status: Alert, Normal Affect, Normal Mood - Patient Data Lab Results Last 24 hrs: Laboratory Results - last 24 hr 06/26/21 06/26/21 Range/Units 06:21 06:21 WBC 14.14 H (4.23-9.07) K/mm3 RBC 5.14 (4.63-6.08) M/mm3 Hgb 14.8 (13.7-17.5) gm/dl Hct 44.6 (40.1-51.0) % MCV 86.8 (79.0-92.2) fl MCH 28.8 (25.7-32.2) pg MCHC 33.2 (32.2-35.5) g/dl RDW Std Deviation 43.4 (35.1-43.9) fL Plt Count 213 (163-337) K/mm3 MPV 10.6 (9.4-12.3) fl Neut % (Auto) 90.7 H (34.0-67.9) % Lymph % (Auto) 3.9 L (21.8-53.1) % [place] % (Auto) 4.7 L (5.3-12.2) % Eos % (Auto) 0.4 L (0.8-7.0) Baso % (Auto) 0.1 (0.1-1.2) % Neut # (Auto) 12.83 H (1.78-5.38) K/mm3 Lymph # (Auto) 0.55 L (1.32-3.57) K/mm3 [place] # (Auto) 0.67 (0.30-0.82) K/mm3 Eos # (Auto) 0.05 (0.04-0.54) K/mm3 Baso # (Auto) 0.01 (0.01-0.08) K/mm3 Sodium 133 L (136-145) mEq/L Potassium 4.0 (3.5-5.1) mEq/L Chloride 100 (98-107) mEq/L Carbon Dioxide 27 (21-32) mEq/L Anion Gap 10.0 (5-15) BUN 27 H (7-18) mg/dL Creatinine 1.1 (0.7-1.3) mg/dL Est Cr Clr Drug Dosing 70.55 mL/min Estimated GFR (MDRD) > 60 (>60) mL/min BUN/Creatinine Ratio 24.5 H (14-18) Glucose 119 H (70-99) mg/dL Calcium 8.8 (8.5-10.1) mg/dL Phosphorus 2.4 L (2.6-4.7) mg/dL Magnesium 2.2 (1.8-2.4) mg/dL Result Diagrams: 06/26/21 06:21 06/26/21 06:21 Sepsis Event Note - Evaluation Sepsis Screening Result: No Definite Risk - Focused Exam Vital Signs: Vital Signs Temp Pulse Resp BP Pulse Ox 06/26/21 03:48 97.5 F 87 20 142/91 H 96 06/25/21 21:46 97.9 F 91 28 H 131/77 97 - Problem List Review Problem List Initiated/Reviewed/Updated: No - My Orders Last 24 Hours: My Active Orders 06/25/21 09:00 Enoxaparin [Lovenox] 40 mg SUBCUT DAILY Tamsulosin [Flomax] 0.4 mg PO DAILY 06/25/21 09:08 Incentive Spirometry [RT Incentive Spirometry] [RC] Q2HWA 06/25/21 09:15 polyethylene glycoL 3350 [MiraLAX] 17 gm PO DAILY 06/25/21 09:45 hydroCHLOROthiazide 12.5 mg PO DAILY 06/25/21 11:00 Carbidopa/Levodopa [Sinemet 25-100 mg] 1.5 tab PO 0600,1100,1600 06/25/21 Dinner NPO Now [Nothing per Oral Now Diet] [DIET] 06/25/21 17:40 Gastrointestinal Tube Mgmt [RC] 04,10,16,22 NG [Nasogastric Orogastric Tube Insertion] [OM.PC] Routine 06/25/21 17:45 D5 1/2 NS w/ 20 mEq/L KCl 1,000 ml IV ASDIRECTED 06/25/21 20:04 Intake and Output Strict [RC] Q2HR 06/26/21 00:00 Ketorolac [Toradol] 15 mg IVPUSH Q6H 06/26/21 01:17 HYDROmorphone [Dilaudid] 0.5 mg IVPUSH Q6H PRN 06/26/21 02:00 Piperacillin/Tazobactam [Piperacil-Tazobact] 4.5 gm Sodium Chloride 0.9% [Normal Saline] 100 ml IV Q8H 06/26/21 08:10 Chest 1V-Tube Placement Chk NC [CR] Urgent 06/26/21 09:00 Pantoprazole [ProTONIX IV] 40 mg IVPUSH DAILY 06/27/21 05:11 BASIC METABOLIC PANEL,BMP [CHEM] AM CBC WITH AUTO DIFF [HEME] AM MAGNESIUM [CHEM] AM PHOSPHORUS [CHEM] AM 06/28/21 05:11 BASIC METABOLIC PANEL,BMP [CHEM] AM CBC WITH AUTO DIFF [HEME] AM MAGNESIUM [CHEM] AM PHOSPHORUS [CHEM] AM 06/29/21 05:11 BASIC METABOLIC PANEL,BMP [CHEM] AM CBC WITH AUTO DIFF [HEME] AM MAGNESIUM [CHEM] AM PHOSPHORUS [CHEM] AM 06/30/21 05:11 BASIC METABOLIC PANEL,BMP [CHEM] AM CBC WITH AUTO DIFF [HEME] AM MAGNESIUM [CHEM] AM PHOSPHORUS [CHEM] AM - Assessment Assessment:: POD2 s/p lap appendectomy for perforated acute appendicitis with small localized abscess and peritonitis. Developed paralytic ileus - Plan Plan:: -Continue bowel rest with NGT. Please make sure NGT is functioning well at all times. - Continue IVF - COntinue antibiotics. WBC has improved today - daily CBC/BMP - Encourage ambulation - Encourage IS today Dispo: pending clinical improvement
--- NOTE | 2021-06-26 08:56 | CR ---
Chest: Portable view of the chest was obtained. Comparison: Prior chest x-ray of 06/25/21. Somewhat limited inspiratory effort is seen. Nasogastric tube is noted with tip lying within the stomach. Mildly prominent small bowel gas is noted within the abdomen. Very minimal atelectasis is seen within both lung bases. Lungs otherwise are clear. No acute bony abnormality is appreciated. Impression: 1. Increased gas within the small bowel most likely representing continuing ileus. 2. Slight atelectasis is noted within both lung bases. 3. Satisfactory position of nasogastric tube. Tip lies within the stomach. Diagnostic code #2
[2021-06-26] MEDS: Enoxaparin 40 MG/0.4 ML Syringe SUBCUT SCH (09:09)
[2021-06-26] MEDS: Pantoprazole 40 MG Vial IVPUSH SCH (09:10)
[2021-06-26] MEDS: Tamsulosin 0.4 MG Cap.ER PO SCH (09:10)
[2021-06-26] MEDS ORDERED: Bisacodyl 10 MG Supp RECTAL PRN (11:41)
--- NOTE | 2021-06-26 17:56 | PCM.SN.2 ---
- Free Text/Narrative Note: I saw the patient this PM. he reports that he felt better this afternoon when the NGT worked. He feels a little more distended now. he remains stable. He reports that he is urinating normally. Abdomen is soft, distended, moderately tender to palpation on the RLQ and lower abd. NGT flushed and seems to be working. Continue current management with NGT, IVF, pain control. He is open to getting another suppository which I a ok with. I think he will start to turn around soon as inflammation improves. Call with any questions. Time Documentation
[2021-06-26] MEDS: Ondansetron 4 MG Tab.DIS PO PRN (20:08)
[2021-06-27] MEDS: Piperacillin/Tazobactam 4.5 GM in Sodium Chloride 0.9% 100 ML IV SCH ×3 (01:05→18:17)
[2021-06-27] MEDS: Ketorolac 15 MG/ML SDV IVPUSH SCH ×4 (01:05→18:17)
[2021-06-27] MEDS: D5 1/2 NS w/ 20 mEq/L KCl 1,000 ML IV SCH ×2 (01:13→13:05)
--- NOTE | 2021-06-27 08:00 | PCM.PN ---
- General Info Date of Service: 06/27/21 Subjective Update: Feeling better this morning. abdomen is not as tight. He had several runny stools along with some flatus overnight. Functional Status: Reports: Pain Controlled, Ambulating, Urinating - Review of Systems General: Reports: No Symptoms HEENT: Reports: No Symptoms Pulmonary: Reports: No Symptoms Cardiovascular: Reports: No Symptoms Gastrointestinal: Reports: Abdominal Pain, Diarrhea Genitourinary: Reports: No Symptoms Musculoskeletal: Reports: No Symptoms Skin: Reports: No Symptoms Neurological: Reports: No Symptoms - Patient Data Vitals - Most Recent: Last Vital Signs Temp 97.9 F 06/27/21 07:31 Pulse 78 06/27/21 07:31 Resp 18 06/27/21 07:31 BP 146/74 H 06/27/21 07:31 Pulse Ox 96 06/27/21 07:31 Weight - Most Recent: 105.46 kg I&O - Last 24 Hours: Intake & Output 06/26/21 06/27/21 06/27/21 22:59 06:59 14:59 Intake Total 790 160 Output Total 730 420 Balance 60 -260 Lab Results Last 24 Hours: Laboratory Results - last 24 hr 06/27/21 06/27/21 Range/Units 05:06 05:06 WBC 10.01 H (4.23-9.07) K/mm3 RBC 4.82 (4.63-6.08) M/mm3 Hgb 13.9 (13.7-17.5) gm/dl Hct 42.0 (40.1-51.0) % MCV 87.1 (79.0-92.2) fl MCH 28.8 (25.7-32.2) pg MCHC 33.1 (32.2-35.5) g/dl RDW Std Deviation 43.2 (35.1-43.9) fL Plt Count 237 (163-337) K/mm3 MPV 10.4 (9.4-12.3) fl Neut % (Auto) 84.1 H (34.0-67.9) % Lymph % (Auto) 6.8 L (21.8-53.1) % [place] % (Auto) 6.5 (5.3-12.2) % Eos % (Auto) 2.1 (0.8-7.0) Baso % (Auto) 0.3 (0.1-1.2) % Neut # (Auto) 8.42 H (1.78-5.38) K/mm3 Lymph # (Auto) 0.68 L (1.32-3.57) K/mm3 [place] # (Auto) 0.65 (0.30-0.82) K/mm3 Eos # (Auto) 0.21 (0.04-0.54) K/mm3 Baso # (Auto) 0.03 (0.01-0.08) K/mm3 Sodium 140 (136-145) mEq/L Potassium 4.1 (3.5-5.1) mEq/L Chloride 106 (98-107) mEq/L Carbon Dioxide 26 (21-32) mEq/L Anion Gap 12.1 (5-15) BUN 28 H (7-18) mg/dL Creatinine 1.1 (0.7-1.3) mg/dL Est Cr Clr Drug Dosing 70.55 mL/min Estimated GFR (MDRD) > 60 (>60) mL/min BUN/Creatinine Ratio 25.5 H (14-18) Glucose 103 H (70-99) mg/dL Calcium 8.2 L (8.5-10.1) mg/dL Phosphorus 2.3 L (2.6-4.7) mg/dL Magnesium 2.0 (1.8-2.4) mg/dL Med Orders - Current: Current Medications Bisacodyl (Bisacodyl 10 Mg Supp) 10 mg RECTAL DAILY PRN PRN Reason: Constipation Last Admin: 06/26/21 12:05 Dose: 10 mg Documented by: Carbidopa/Levodopa (Carbidopa/Levodopa 25-100 Mg Tab) 1.5 tab PO 0600,1100,1600 [facility] Last Admin: 06/25/21 16:29 Dose: 1.5 tab Documented by: Enoxaparin Sodium (Enoxaparin 40 Mg/0.4 Ml Syringe) 40 mg SUBCUT DAILY [facility] Last Admin: 06/26/21 09:09 Dose: 40 mg Documented by: Hydrochlorothiazide (Hydrochlorothiazide 12.5 Mg Cap) 12.5 mg PO DAILY [facility] Last Admin: 06/25/21 09:36 Dose: Not Given Documented by: Hydromorphone HCl (Hydromorphone 0.5 Mg/0.5 Ml Syringe) 0.5 mg IVPUSH Q6H PRN PRN Reason: Pain Last Admin: 06/26/21 20:02 Dose: 0.5 mg Documented by: Potassium Chloride/Dextrose/Sod Cl (D5 1/2 Ns W/ 20 Meq/L Kcl) 1,000 mls @ 100 mls/hr IV ASDIRECTED [facility] Last Admin: 06/27/21 01:13 Dose: 100 mls/hr Documented by: Piperacillin Sod/Tazobactam (Sod 4.5 gm/ Sodium Chloride) 100 mls @ 25 mls/hr IV Q8H [facility] Last Admin: 06/27/21 01:05 Dose: 25 mls/hr Documented by: Ketorolac Tromethamine (Ketorolac 15 Mg/Ml Sdv) 15 mg IVPUSH Q6H [facility] Last Admin: 06/27/21 05:33 Dose: 15 mg Documented by: Ondansetron HCl (Ondansetron 4 Mg Tab.Dis) 4 mg PO Q4H PRN PRN Reason: nausea, able to take PO Last Admin: 06/26/21 20:08 Dose: 4 mg Documented by: Pantoprazole Sodium (Pantoprazole 40 Mg Vial) 40 mg IVPUSH DAILY [facility] Last Admin: 06/26/21 09:10 Dose: 40 mg Documented by: Polyethylene Glycol (Polyethylene Glycol 3350 Powder 17 Gm Packet) 17 gm PO MORIAH LY [facility] Last Admin: 06/25/21 09:34 Dose: 17 gm Documented by: Tamsulosin HCl (Tamsulosin 0.4 Mg Cap.Er) 0.4 mg PO DAILY [facility] Last Admin: 06/26/21 09:10 Dose: Not Given Documented by: Discontinued Medications Albuterol (Albuterol 6.7 Gm Inhaler) Confirm Administered Dose 6.7 gm INH .STK- MED ONE Stop: 06/24/21 15:42 Aspirin (Aspirin 81 Mg Tab.Ec) 81 mg PO DAILY [facility] Last Admin: 06/25/21 09:32 Dose: 81 mg Documented by: Bupivacaine HCl/Epinephrine Bitart (Bupivacaine 0.5%/Epinephrine 1:200,000 50 Ml Mdv) Confirm Administered Dose 50 ml .ROUTE .STK-MED ONE Stop: 06/24/21 13:27 Last Admin: 06/24/21 14:11 Dose: 50 ml Documented by: Carbidopa/Levodopa (Carbidopa/Levodopa 25-100 Mg Tab) 1.5 tab PO TID [facility] Last Admin: 06/24/21 20:19 Dose: 1.5 tab Documented by: Carbidopa/Levodopa (Carbidopa/Levodopa 25-100 Mg Tab) 1.5 tab PO 0600,1100,1600 [facility] Last Admin: 06/25/21 07:50 Dose: 1.5 tab Documented by: Carbidopa/Levodopa (Carbidopa/Levodopa 25-100 Mg Tab) 1.5 tab PO TID [facility] Dexamethasone (Dexamethasone 4 Mg/Ml 5 Ml Mdv) Confirm Administered Dose 20 mg .ROUTE .STK-MED ONE Stop: 06/24/21 12:24 Diatrizoate Meglum/Diatrizoate Sod (Diatrizoate Meglumine/Diatrizoate Sodium 37% 120 Ml Bottle) 120 ml PO ONETIME ONE Stop: 06/24/21 03:43 Last Admin: 06/24/21 03:43 Dose: 120 ml Documented by: Docusate Sodium (Docusate Sodium 100 Mg Cap) 100 mg PO DAILY PRN PRN Reason: Constipation Fentanyl (Fentanyl 250 Mcg/5 Ml Sdv) Confirm Administered Dose 250 mcg .ROUTE .STK-MED ONE Stop: 06/24/21 12:20 Fentanyl (Fentanyl 100 Mcg/2 Ml Sdv) 50 mcg IVPUSH Q5M PRN PRN Reason: Pain Stop: 06/24/21 23:00 Glycopyrrolate (Glycopyrrolate 0.2 Mg/Ml 2 Ml Syringe) Confirm Administered Dose 0.8 mg .ROUTE .STK-MED ONE Stop: 06/24/21 14:15 Hydrochlorothiazide (Hydrochlorothiazide 25 Mg Tab) 12.5 mg PO DAILY [facility] Stop: 06/25/21 11:00 Last Admin: 06/25/21 09:34 Dose: 12.5 mg Documented by: Hydromorphone HCl (Hydromorphone 0.5 Mg/0.5 Ml Syringe) 0.5 mg IVPUSH ONETIME ONE Stop: 06/24/21 02:16 Last Admin: 06/24/21 02:42 Dose: 0.5 mg Documented by: Hydromorphone HCl (Hydromorphone 0.5 Mg/0.5 Ml Syringe) 0.5 mg IVPUSH ONETIME ONE Stop: 06/24/21 05:28 Last Admin: 06/24/21 05:44 Dose: 0.5 mg Documented by: Hydromorphone HCl (Hydromorphone 0.5 Mg/0.5 Ml Syringe) 0.5 mg IVPUSH ONETIME ONE Stop: 06/24/21 08:20 Last Admin: 06/24/21 08:23 Dose: 0.5 mg Documented by: Hydromorphone HCl (Hydromorphone 1 Mg/Ml Syringe) 1 mg IVPUSH ONETIME ONE Stop: 06/24/21 09:45 Last Admin: 06/24/21 09:48 Dose: 1 mg Documented by: Hydromorphone HCl (Hydromorphone 0.5 Mg/0.5 Ml Syringe) Confirm Administered Dose 0.5 mg .ROUTE .STK-MED ONE Stop: 06/24/21 14:30 Hydromorphone HCl (Hydromorphone 0.5 Mg/0.5 Ml Syringe) Confirm Administered Dose 0.5 mg .ROUTE .STK-MED ONE Stop: 06/24/21 14:58 Hydromorphone HCl (Hydromorphone 0.5 Mg/0.5 Ml Syringe) 0.5 mg IVPUSH Q10M PRN PRN Reason: Pain (severe 7-10) Stop: 06/24/21 23:00 Hydromorphone HCl (Hydromorphone 0.5 Mg/0.5 Ml Syringe) 0.5 mg IVPUSH Q2H PRN PRN Reason: Pain (severe 7-10) Sodium Chloride (Normal Saline) 1,000 mls @ 1,000 mls/hr IV .BOLUS STA Stop: 06/24/21 03:13 Last Admin: 06/24/21 02:40 Dose: 1,000 mls/hr Documented by: Cefoxitin Sodium 2 gm/ Premix 50 mls @ 100 mls/hr IV ONETIME ONE Stop: 06/24/21 05:00 Last Admin: 06/24/21 04:50 Dose: 100 mls/hr Documented by: Lactated Ringer's (Ringers, Lactated) Confirm Administered Dose 1,000 mls @ as directed .ROUTE .STK-MED ONE Stop: 06/24/21 14:13 Lactated Ringer's (Ringers, Lactated) Confirm Administered Dose 1,000 mls @ as directed .ROUTE .STK-MED ONE Stop: 06/24/21 14:13 Lactated Ringer's (Ringers, Lactated) 1,000 mls @ 125 mls/hr IV ASDIRECTED [facility] Piperacillin Sod/Tazobactam (Sod 4.5 gm/ Sodium Chloride) 100 mls @ 200 mls/hr IV ONETIME ONE Stop: 06/24/21 16:31 Last Admin: 06/24/21 17:37 Dose: 200 mls/hr Documented by: Sodium Chloride (Normal Saline) 1,000 mls @ 125 mls/hr IV ASDIRECTED [facility] Last Admin: 06/25/21 09:00 Dose: 125 mls/hr Documented by: Piperacillin Sod/Tazobactam (Sod 4.5 gm/ Sodium Chloride) 100 mls @ 25 mls/hr IV Q8H [facility] Last Admin: 06/25/21 16:19 Dose: 25 mls/hr Documented by: Sodium Chloride (Normal Saline) 1,000 mls @ 1,000 mls/hr IV ONETIME ONE Stop: 06/24/21 17:29 Last Admin: 06/24/21 16:30 Dose: 1,000 mls/hr Documented by: Lactated Ringer's (Ringers, Lactated) 1,000 mls @ 999 mls/hr IV BOLUS ONE Stop: 06/25/21 21:17 Last Admin: 06/25/21 20:18 Dose: 999 mls/hr Documented by: Lactated Ringer's (Ringers, Lactated) Confirm Administered Dose 1,000 mls @ as directed .ROUTE .STK-MED ONE Stop: 06/25/21 20:08 Last Admin: 06/25/21 20:18 Dose: Not Given Documented by: Ibuprofen (Ibuprofen 600 Mg Tab) 600 mg PO Q6H [facility] Last Admin: 06/25/21 11:36 Dose: 600 mg Documented by: Iopamidol (Iopamidol 612 Mg/Ml 50 Ml Sdv) 50 ml IVPUSH ONETIME ONE Stop: 06/24/21 03:43 Last Admin: 06/24/21 03:43 Dose: 50 ml Documented by: Iopamidol (Iopamidol 612 Mg/Ml 100 Ml Bottle) 100 ml IVPUSH ONETIME ONE Stop: 06/24/21 03:43 Last Admin: 06/24/21 03:43 Dose: 100 ml Documented by: Ketamine HCl (Ketamine 500 Mg/10 Ml Mdv) Confirm Administered Dose 500 mg .ROUTE .STK-MED ONE Stop: 06/24/21 14:31 Ketorolac Tromethamine (Ketorolac 30 Mg/Ml Sdv) Confirm Administered Dose 30 mg .ROUTE .STK-MED ONE Stop: 06/24/21 12:37 Ketorolac Tromethamine (Ketorolac 15 Mg/Ml Sdv) 15 mg IVPUSH Q6H [facility] Last Admin: 06/25/21 17:45 Dose: 15 mg Documented by: Lidocaine HCl (Lidocaine 1% 5 Ml Sdv) Confirm Administered Dose 5 ml .ROUTE .STK-MED ONE Stop: 06/24/21 12:22 Midazolam HCl (Midazolam 1 Mg/Ml 2 Ml Sdv) Confirm Administered Dose 2 mg .ROUTE .STK-MED ONE Stop: 06/24/21 12:20 Neostigmine Methylsulfate (Neostigmine Methylsulfate 5 Mg/5 Ml Syringe) Confirm Administered Dose 5 mg .ROUTE .STK-MED ONE Stop: 06/24/21 14:15 Ondansetron HCl (Ondansetron 4 Mg/2 Ml Sdv) 4 mg IVPUSH ONETIME ONE Stop: 06/24/21 02:16 Last Admin: 06/24/21 02:42 Dose: 4 mg Documented by: Ondansetron HCl (Ondansetron 4 Mg/2 Ml Sdv) 4 mg IVPUSH ONETIME ONE Stop: 06/24/21 09:45 Last Admin: 06/24/21 09:48 Dose: 4 mg Documented by: Ondansetron HCl (Ondansetron 4 Mg/2 Ml Sdv) Confirm Administered Dose 4 mg .ROUTE .STK-MED ONE Stop: 06/24/21 12:24 Ondansetron HCl (Ondansetron 4 Mg/2 Ml Sdv) 4 mg IVPUSH ONETIME PRN PRN Reason: Nausea/Vomiting Stop: 06/24/21 23:00 Oxycodone/Acetaminophen (Acetaminophen/Oxycodone 325-5 Mg Tab) 1 tab PO Q4H PRN PRN Reason: Pain (moderate 4-6) Pantoprazole Sodium (Pantoprazole 40 Mg Tab.Cr) 40 mg PO ACBREAKFAST [facility] Last Admin: 06/25/21 06:21 Dose: 40 mg Documented by: Polyethylene Glycol (Polyethylene Glycol 3350 Powder 17 Gm Packet) 17 gm PO DAILY PRN PRN Reason: Constipation Propofol (Propofol 200 Mg/20 Ml Sdv) Confirm Administered Dose 200 mg .ROUTE .STK-MED ONE Stop: 06/24/21 12:20 Rocuronium [place] (Rocuronium 50 Mg/5 Ml Vial) Confirm Administered Dose 50 mg .ROUTE .STK-MED ONE Stop: 06/24/21 12:23 Sodium Chloride (Sodium Chloride 0.9% 10 Ml Syringe) 10 ml FLUSH ASDIRECTED PRN PRN Reason: Keep Vein Open Stop: 06/24/21 18:00 Last Admin: 06/24/21 03:43 Dose: 10 ml Documented by: Sodium Chloride (Sodium Chloride 0.9% 10 Ml Sdv) 10 ml FLUSH ONETIME ONE Stop: 06/24/21 03:43 Last Admin: 06/24/21 04:00 Dose: 10 ml Documented by: - Exam General: Alert, Oriented, Cooperative Lungs: Clear to Auscultation Cardiovascular: Regular Rate, Regular Rhythm GI/Abdominal Exam: Soft, Distended, Tender (mildly tender to palpation.), Other (NGT in place. ) - Patient Data Lab Results Last 24 hrs: Laboratory Results - last 24 hr 06/27/21 06/27/21 Range/Units 05:06 05:06 WBC 10.01 H (4.23-9.07) K/mm3 RBC 4.82 (4.63-6.08) M/mm3 Hgb 13.9 (13.7-17.5) gm/dl Hct 42.0 (40.1-51.0) % MCV 87.1 (79.0-92.2) fl MCH 28.8 (25.7-32.2) pg MCHC 33.1 (32.2-35.5) g/dl RDW Std Deviation 43.2 (35.1-43.9) fL Plt Count 237 (163-337) K/mm3 MPV 10.4 (9.4-12.3) fl Neut % (Auto) 84.1 H (34.0-67.9) % Lymph % (Auto) 6.8 L (21.8-53.1) % [place] % (Auto) 6.5 (5.3-12.2) % Eos % (Auto) 2.1 (0.8-7.0) Baso % (Auto) 0.3 (0.1-1.2) % Neut # (Auto) 8.42 H (1.78-5.38) K/mm3 Lymph # (Auto) 0.68 L (1.32-3.57) K/mm3 [place] # (Auto) 0.65 (0.30-0.82) K/mm3 Eos # (Auto) 0.21 (0.04-0.54) K/mm3 Baso # (Auto) 0.03 (0.01-0.08) K/mm3 Sodium 140 (136-145) mEq/L Potassium 4.1 (3.5-5.1) mEq/L Chloride 106 (98-107) mEq/L Carbon Dioxide 26 (21-32) mEq/L Anion Gap 12.1 (5-15) BUN 28 H (7-18) mg/dL Creatinine 1.1 (0.7-1.3) mg/dL Est Cr Clr Drug Dosing 70.55 mL/min Estimated GFR (MDRD) > 60 (>60) mL/min BUN/Creatinine Ratio 25.5 H (14-18) Glucose 103 H (70-99) mg/dL Calcium 8.2 L (8.5-10.1) mg/dL Phosphorus 2.3 L (2.6-4.7) mg/dL Magnesium 2.0 (1.8-2.4) mg/dL Result Diagrams: 06/27/21 05:06 06/27/21 05:06 Sepsis Event Note - Evaluation Sepsis Screening Result: No Definite Risk - Focused Exam Vital Signs: Vital Signs Temp Pulse Resp BP Pulse Ox 06/27/21 07:31 97.9 F 78 18 146/74 H 96 06/27/21 05:44 97.9 F 85 22 H 149/83 H 92 L 06/27/21 01:07 97.7 F 80 22 H 143/84 H 94 L 06/26/21 20:12 97 91 L - Problem List Review Problem List Initiated/Reviewed/Updated: No - My Orders Last 24 Hours: My Active Orders 06/26/21 09:00 Pantoprazole [ProTONIX IV] 40 mg IVPUSH DAILY 06/26/21 11:41 bisacodyL [Dulcolax] 10 mg RECTAL DAILY PRN 06/26/21 11:45 Enema [RC] ASDIRECTED 06/26/21 11:46 Bladder Scan [RC] ASDIRECTED 06/26/21 19:25 Communication Order [RC] DAILY 06/28/21 05:11 BASIC METABOLIC PANEL,BMP [CHEM] AM CBC WITH AUTO DIFF [HEME] AM MAGNESIUM [CHEM] AM PHOSPHORUS [CHEM] AM 06/29/21 05:11 BASIC METABOLIC PANEL,BMP [CHEM] AM CBC WITH AUTO DIFF [HEME] AM MAGNESIUM [CHEM] AM PHOSPHORUS [CHEM] AM 06/30/21 05:11 BASIC METABOLIC PANEL,BMP [CHEM] AM CBC WITH AUTO DIFF [HEME] AM MAGNESIUM [CHEM] AM PHOSPHORUS [CHEM] AM - Assessment Assessment:: POD3 s/p lap appendectomy for perforated acute appendicitis with small localized abscess and peritonitis. Developed paralytic ileus - Plan Plan:: -Patient is feeling better and starting to improve. We will keep the NGT for now and re-evaluate this evening -continue NPO and IVF -encourage ambulation -encourage IS Dispo: pending clinical improvement
[2021-06-27] MEDS: Tamsulosin 0.4 MG Cap.ER PO SCH (09:23)
[2021-06-27] MEDS: Pantoprazole 40 MG Vial IVPUSH SCH (09:23)
[2021-06-27] MEDS: Enoxaparin 40 MG/0.4 ML Syringe SUBCUT SCH (09:23)
--- NOTE | 2021-06-27 16:55 | PCM.SN.2 ---
- Free Text/Narrative Note: Patient distention has improved. only 270 cc from the NGT since 8 am. Output appears yellowing. Patient has ambulated. No more flatus or BM since this AM. Plan - Will dc NGT. Keep him NPO with IVF - Ice chips for comfort - we will see how he does overnight. Time Documentation
[2021-06-28] MEDS: D5 1/2 NS w/ 20 mEq/L KCl 1,000 ML IV SCH
[2021-06-28] MEDS: Carbidopa/Levodopa 25-100 MG Tab PO SCH ×3 (05:50→16:15)
[2021-06-28] MEDS: Ketorolac 15 MG/ML SDV IVPUSH SCH ×3 (05:52→12:06)
[2021-06-28] MEDS: Piperacillin/Tazobactam 4.5 GM in Sodium Chloride 0.9% 100 ML IV SCH ×2 (05:52→12:07)
--- NOTE | 2021-06-28 07:50 | PCM.PN ---
- General Info Date of Service: 06/28/21 Subjective Update: Patient is feeling much better today. Is passing frequent runny stools. No nausea or vomiting. Functional Status: Reports: Pain Controlled, Tolerating Diet, Ambulating, Urinating - Review of Systems General: Reports: No Symptoms HEENT: Reports: No Symptoms Pulmonary: Reports: No Symptoms Cardiovascular: Reports: No Symptoms Gastrointestinal: Reports: No Symptoms Genitourinary: Reports: No Symptoms Musculoskeletal: Reports: No Symptoms Skin: Reports: No Symptoms - Patient Data Vitals - Most Recent: Last Vital Signs Temp 97.7 F 06/28/21 05:46 Pulse 79 06/28/21 05:46 Resp 20 06/28/21 05:46 BP 142/77 H 06/28/21 05:46 Pulse Ox 93 L 06/28/21 05:46 Weight - Most Recent: 104.054 kg I&O - Last 24 Hours: Intake & Output 06/27/21 06/28/21 06/28/21 22:59 06:59 14:59 Intake Total 740 4291 Output Total 175 Balance 565 4291 Lab Results Last 24 Hours: Laboratory Results - last 24 hr 06/28/21 06/28/21 Range/Units 05:17 05:17 WBC 7.07 (4.23-9.07) K/mm3 RBC 4.67 (4.63-6.08) M/mm3 Hgb 13.6 L (13.7-17.5) gm/dl Hct 40.0 L (40.1-51.0) % MCV 85.7 (79.0-92.2) fl MCH 29.1 (25.7-32.2) pg MCHC 34.0 (32.2-35.5) g/dl RDW Std Deviation 41.0 (35.1-43.9) fL Plt Count 249 (163-337) K/mm3 MPV 10.3 (9.4-12.3) fl Neut % (Auto) 72.3 H (34.0-67.9) % Lymph % (Auto) 12.2 L (21.8-53.1) % Harmon % (Auto) 11.3 (5.3-12.2) % Eos % (Auto) 3.1 (0.8-7.0) Baso % (Auto) 0.7 (0.1-1.2) % Neut # (Auto) 5.11 (1.78-5.38) K/mm3 Lymph # (Auto) 0.86 L (1.32-3.57) K/mm3 Harmon # (Auto) 0.80 (0.30-0.82) K/mm3 Eos # (Auto) 0.22 (0.04-0.54) K/mm3 Baso # (Auto) 0.05 (0.01-0.08) K/mm3 Sodium 141 (136-145) mEq/L Potassium 3.8 (3.5-5.1) mEq/L Chloride 106 (98-107) mEq/L Carbon Dioxide 25 (21-32) mEq/L Anion Gap 13.8 (5-15) BUN 22 H (7-18) mg/dL Creatinine 1.0 (0.7-1.3) mg/dL Est Cr Clr Drug Dosing 77.60 mL/min Estimated GFR (MDRD) > 60 (>60) mL/min BUN/Creatinine Ratio 22.0 H (14-18) Glucose 97 (70-99) mg/dL Calcium 8.3 L (8.5-10.1) mg/dL Phosphorus 2.7 (2.6-4.7) mg/dL Magnesium 2.0 (1.8-2.4) mg/dL Med Orders - Current: Current Medications Bisacodyl (Bisacodyl 10 Mg Supp) 10 mg RECTAL DAILY PRN PRN Reason: Constipation Last Admin: 06/26/21 12:05 Dose: 10 mg Documented by: Carbidopa/Levodopa (Carbidopa/Levodopa 25-100 Mg Tab) 1.5 tab PO 0600,1100,1600 [facility] Last Admin: 06/28/21 05:50 Dose: 1.5 tab Documented by: Enoxaparin Sodium (Enoxaparin 40 Mg/0.4 Ml Syringe) 40 mg SUBCUT DAILY [facility] Last Admin: 06/27/21 09:23 Dose: 40 mg Documented by: Hydrochlorothiazide (Hydrochlorothiazide 12.5 Mg Cap) 12.5 mg PO DAILY [facility] Last Admin: 06/25/21 09:36 Dose: Not Given Documented by: Hydromorphone HCl (Hydromorphone 0.5 Mg/0.5 Ml Syringe) 0.5 mg IVPUSH Q6H PRN PRN Reason: Pain Last Admin: 06/26/21 20:02 Dose: 0.5 mg Documented by: Potassium Chloride/Dextrose/Sod Cl (D5 1/2 Ns W/ 20 Meq/L Kcl) 1,000 mls @ 100 mls/hr IV ASDIRECTED [facility] Last Admin: 06/28/21 00:00 Dose: 100 mls/hr Documented by: Piperacillin Sod/Tazobactam (Sod 4.5 gm/ Sodium Chloride) 100 mls @ 25 mls/hr IV Q8H [facility] Last Admin: 06/28/21 05:52 Dose: 25 mls/hr Documented by: Ketorolac Tromethamine (Ketorolac 15 Mg/Ml Sdv) 15 mg IVPUSH Q6H [facility] Last Admin: 06/28/21 05:52 Dose: 15 mg Documented by: Ondansetron HCl (Ondansetron 4 Mg Tab.Dis) 4 mg PO Q4H PRN PRN Reason: nausea, able to take PO Last Admin: 06/26/21 20:08 Dose: 4 mg Documented by: Pantoprazole Sodium (Pantoprazole 40 Mg Vial) 40 mg IVPUSH DAILY [facility] Last Admin: 06/27/21 09:23 Dose: 40 mg Documented by: Polyethylene Glycol (Polyethylene Glycol 3350 Powder 17 Gm Packet) 17 gm PO DAILY [facility] Last Admin: 06/25/21 09:34 Dose: 17 gm Documented by: Tamsulosin HCl (Tamsulosin 0.4 Mg Cap.Er) 0.4 mg PO DAILY [facility] Last Admin: 06/27/21 09:23 Dose: Not Given Documented by: Discontinued Medications Albuterol (Albuterol 6.7 Gm Inhaler) Confirm Administered Dose 6.7 gm INH .STK- MED ONE Stop: 06/24/21 15:42 Aspirin (Aspirin 81 Mg Tab.Ec) 81 mg PO DAILY [facility] Last Admin: 06/25/21 09:32 Dose: 81 mg Documented by: Bupivacaine HCl/Epinephrine Bitart (Bupivacaine 0.5%/Epinephrine 1:200,000 50 Ml Mdv) Confirm Administered Dose 50 ml .ROUTE .STK-MED ONE Stop: 06/24/21 13:27 Last Admin: 06/24/21 14:11 Dose: 50 ml Documented by: Carbidopa/Levodopa (Carbidopa/Levodopa 25-100 Mg Tab) 1.5 tab PO TID [facility] Last Admin: 06/24/21 20:19 Dose: 1.5 tab Documented by: Carbidopa/Levodopa (Carbidopa/Levodopa 25-100 Mg Tab) 1.5 tab PO 0600,1100,1600 [facility] Last Admin: 06/25/21 07:50 Dose: 1.5 tab Documented by: Carbidopa/Levodopa (Carbidopa/Levodopa 25-100 Mg Tab) 1.5 tab PO TID [facility] Dexamethasone (Dexamethasone 4 Mg/Ml 5 Ml Mdv) Confirm Administered Dose 20 mg .ROUTE .STK-MED ONE Stop: 06/24/21 12:24 Diatrizoate Meglum/Diatrizoate Sod (Diatrizoate Meglumine/Diatrizoate Sodium 37% 120 Ml Bottle) 120 ml PO ONETIME ONE Stop: 06/24/21 03:43 Last Admin: 06/24/21 03:43 Dose: 120 ml Documented by: Docusate Sodium (Docusate Sodium 100 Mg Cap) 100 mg PO DAILY PRN PRN Reason: Constipation Fentanyl (Fentanyl 250 Mcg/5 Ml Sdv) Confirm Administered Dose 250 mcg .ROUTE .STK-MED ONE Stop: 06/24/21 12:20 Fentanyl (Fentanyl 100 Mcg/2 Ml Sdv) 50 mcg IVPUSH Q5M PRN PRN Reason: Pain Stop: 06/24/21 23:00 Glycopyrrolate (Glycopyrrolate 0.2 Mg/Ml 2 Ml Syringe) Confirm Administered Dose 0.8 mg .ROUTE .STK-MED ONE Stop: 06/24/21 14:15 Hydrochlorothiazide (Hydrochlorothiazide 25 Mg Tab) 12.5 mg PO DAILY [facility] Stop: 06/25/21 11:00 Last Admin: 06/25/21 09:34 Dose: 12.5 mg Documented by: Hydromorphone HCl (Hydromorphone 0.5 Mg/0.5 Ml Syringe) 0.5 mg IVPUSH ONETIME ONE Stop: 06/24/21 02:16 Last Admin: 06/24/21 02:42 Dose: 0.5 mg Documented by: Hydromorphone HCl (Hydromorphone 0.5 Mg/0.5 Ml Syringe) 0.5 mg IVPUSH ONETIME ONE Stop: 06/24/21 05:28 Last Admin: 06/24/21 05:44 Dose: 0.5 mg Documented by: Hydromorphone HCl (Hydromorphone 0.5 Mg/0.5 Ml Syringe) 0.5 mg IVPUSH ONETIME ONE Stop: 06/24/21 08:20 Last Admin: 06/24/21 08:23 Dose: 0.5 mg Documented by: Hydromorphone HCl (Hydromorphone 1 Mg/Ml Syringe) 1 mg IVPUSH ONETIME ONE Stop: 06/24/21 09:45 Last Admin: 06/24/21 09:48 Dose: 1 mg Documented by: Hydromorphone HCl (Hydromorphone 0.5 Mg/0.5 Ml Syringe) Confirm Administered Dose 0.5 mg .ROUTE .STK-MED ONE Stop: 06/24/21 14:30 Hydromorphone HCl (Hydromorphone 0.5 Mg/0.5 Ml Syringe) Confirm Administered Dose 0.5 mg .ROUTE .STK-MED ONE Stop: 06/24/21 14:58 Hydromorphone HCl (Hydromorphone 0.5 Mg/0.5 Ml Syringe) 0.5 mg IVPUSH Q10M PRN PRN Reason: Pain (severe 7-10) Stop: 06/24/21 23:00 Hydromorphone HCl (Hydromorphone 0.5 Mg/0.5 Ml Syringe) 0.5 mg IVPUSH Q2H PRN PRN Reason: Pain (severe 7-10) Sodium Chloride (Normal Saline) 1,000 mls @ 1,000 mls/hr IV .BOLUS STA Stop: 06/24/21 03:13 Last Admin: 06/24/21 02:40 Dose: 1,000 mls/hr Documented by: Cefoxitin Sodium 2 gm/ Premix 50 mls @ 100 mls/hr IV ONETIME ONE Stop: 06/24/21 05:00 Last Admin: 06/24/21 04:50 Dose: 100 mls/hr Documented by: Lactated Ringer's (Ringers, Lactated) Confirm Administered Dose 1,000 mls @ as directed .ROUTE .STK-MED ONE Stop: 06/24/21 14:13 Lactated Ringer's (Ringers, Lactated) Confirm Administered Dose 1,000 mls @ as directed .ROUTE .STK-MED ONE Stop: 06/24/21 14:13 Lactated Ringer's (Ringers, Lactated) 1,000 mls @ 125 mls/hr IV ASDIRECTED [facility] Piperacillin Sod/Tazobactam (Sod 4.5 gm/ Sodium Chloride) 100 mls @ 200 mls/hr IV ONETIME ONE Stop: 06/24/21 16:31 Last Admin: 06/24/21 17:37 Dose: 200 mls/hr Documented by: Sodium Chloride (Normal Saline) 1,000 mls @ 125 mls/hr IV ASDIRECTED [facility] Last Admin: 06/25/21 09:00 Dose: 125 mls/hr Documented by: Piperacillin Sod/Tazobactam (Sod 4.5 gm/ Sodium Chloride) 100 mls @ 25 mls/hr IV Q8H [facility] Last Admin: 06/25/21 16:19 Dose: 25 mls/hr Documented by: Sodium Chloride (Normal Saline) 1,000 mls @ 1,000 mls/hr IV ONETIME ONE Stop: 06/24/21 17:29 Last Admin: 06/24/21 16:30 Dose: 1,000 mls/hr Documented by: Lactated Ringer's (Ringers, Lactated) 1,000 mls @ 999 mls/hr IV BOLUS ONE Stop: 06/25/21 21:17 Last Admin: 06/25/21 20:18 Dose: 999 mls/hr Documented by: Lactated Ringer's (Ringers, Lactated) Confirm Administered Dose 1,000 mls @ as directed .ROUTE .STK-MED ONE Stop: 06/25/21 20:08 Last Admin: 06/25/21 20:18 Dose: Not Given Documented by: Piperacillin Sod/Tazobactam (Sod 4.5 gm/ Sodium Chloride) 100 mls @ 25 mls/hr IV Q8H [facility] Last Admin: 06/27/21 18:17 Dose: 25 mls/hr Documented by: Ibuprofen (Ibuprofen 600 Mg Tab) 600 mg PO Q6H [facility] Last Admin: 06/25/21 11:36 Dose: 600 mg Documented by: Iopamidol (Iopamidol 612 Mg/Ml 50 Ml Sdv) 50 ml IVPUSH ONETIME ONE Stop: 06/24/21 03:43 Last Admin: 06/24/21 03:43 Dose: 50 ml Documented by: Iopamidol (Iopamidol 612 Mg/Ml 100 Ml Bottle) 100 ml IVPUSH ONETIME ONE Stop: 06/24/21 03:43 Last Admin: 06/24/21 03:43 Dose: 100 ml Documented by: Ketamine HCl (Ketamine 500 Mg/10 Ml Mdv) Confirm Administered Dose 500 mg .ROUTE .STK-MED ONE Stop: 06/24/21 14:31 Ketorolac Tromethamine (Ketorolac 30 Mg/Ml Sdv) Confirm Administered Dose 30 mg .ROUTE .STK-MED ONE Stop: 06/24/21 12:37 Ketorolac Tromethamine (Ketorolac 15 Mg/Ml Sdv) 15 mg IVPUSH Q6H [facility] Last Admin: 06/25/21 17:45 Dose: 15 mg Documented by: Lidocaine HCl (Lidocaine 1% 5 Ml Sdv) Confirm Administered Dose 5 ml .ROUTE .STK-MED ONE Stop: 06/24/21 12:22 Midazolam HCl (Midazolam 1 Mg/Ml 2 Ml Sdv) Confirm Administered Dose 2 mg .ROUTE .STK-MED ONE Stop: 06/24/21 12:20 Neostigmine Methylsulfate (Neostigmine Methylsulfate 5 Mg/5 Ml Syringe) Confirm Administered Dose 5 mg .ROUTE .STK-MED ONE Stop: 06/24/21 14:15 Ondansetron HCl (Ondansetron 4 Mg/2 Ml Sdv) 4 mg IVPUSH ONETIME ONE Stop: 06/24/21 02:16 Last Admin: 06/24/21 02:42 Dose: 4 mg Documented by: Ondansetron HCl (Ondansetron 4 Mg/2 Ml Sdv) 4 mg IVPUSH ONETIME ONE Stop: 06/24/21 09:45 Last Admin: 06/24/21 09:48 Dose: 4 mg Documented by: Ondansetron HCl (Ondansetron 4 Mg/2 Ml Sdv) Confirm Administered Dose 4 mg .ROU TE .STK-MED ONE Stop: 06/24/21 12:24 Ondansetron HCl (Ondansetron 4 Mg/2 Ml Sdv) 4 mg IVPUSH ONETIME PRN PRN Reason: Nausea/Vomiting Stop: 06/24/21 23:00 Oxycodone/Acetaminophen (Acetaminophen/Oxycodone 325-5 Mg Tab) 1 tab PO Q4H PRN PRN Reason: Pain (moderate 4-6) Pantoprazole Sodium (Pantoprazole 40 Mg Tab.Cr) 40 mg PO ACBREAKFAST [facility] Last Admin: 06/25/21 06:21 Dose: 40 mg Documented by: Polyethylene Glycol (Polyethylene Glycol 3350 Powder 17 Gm Packet) 17 gm PO DAILY PRN PRN Reason: Constipation Propofol (Propofol 200 Mg/20 Ml Sdv) Confirm Administered Dose 200 mg .ROUTE .STK-MED ONE Stop: 06/24/21 12:20 Rocuronium [place] (Rocuronium 50 Mg/5 Ml Vial) Confirm Administered Dose 50 mg .ROUTE .STK-MED ONE Stop: 06/24/21 12:23 Sodium Chloride (Sodium Chloride 0.9% 10 Ml Syringe) 10 ml FLUSH ASDIRECTED PRN PRN Reason: Keep Vein Open Stop: 06/24/21 18:00 Last Admin: 06/24/21 03:43 Dose: 10 ml Documented by: Sodium Chloride (Sodium Chloride 0.9% 10 Ml Sdv) 10 ml FLUSH ONETIME ONE Stop: 06/24/21 03:43 Last Admin: 06/24/21 04:00 Dose: 10 ml Documented by: - Exam General: Alert, Oriented, Cooperative Lungs: Normal Respiratory Effort Cardiovascular: Regular Rate, Regular Rhythm GI/Abdominal Exam: Soft, Non-Tender, Distended Wound/Incisions: Healing Well, Dressing Dry and Intact, No Drainage - Patient Data Lab Results Last 24 hrs: Laboratory Results - last 24 hr 06/28/21 06/28/21 Range/Units 05:17 05:17 WBC 7.07 (4.23-9.07) K/mm3 RBC 4.67 (4.63-6.08) M/mm3 Hgb 13.6 L (13.7-17.5) gm/dl Hct 40.0 L (40.1-51.0) % MCV 85.7 (79.0-92.2) fl MCH 29.1 (25.7-32.2) pg MCHC 34.0 (32.2-35.5) g/dl RDW Std Deviation 41.0 (35.1-43.9) fL Plt Count 249 (163-337) K/mm3 MPV 10.3 (9.4-12.3) fl Neut % (Auto) 72.3 H (34.0-67.9) % Lymph % (Auto) 12.2 L (21.8-53.1) % Harmon % (Auto) 11.3 (5.3-12.2) % Eos % (Auto) 3.1 (0.8-7.0) Baso % (Auto) 0.7 (0.1-1.2) % Neut # (Auto) 5.11 (1.78-5.38) K/mm3 Lymph # (Auto) 0.86 L (1.32-3.57) K/mm3 Harmon # (Auto) 0.80 (0.30-0.82) K/mm3 Eos # (Auto) 0.22 (0.04-0.54) K/mm3 Baso # (Auto) 0.05 (0.01-0.08) K/mm3 Sodium 141 (136-145) mEq/L Potassium 3.8 (3.5-5.1) mEq/L Chloride 106 (98-107) mEq/L Carbon Dioxide 25 (21-32) mEq/L Anion Gap 13.8 (5-15) BUN 22 H (7-18) mg/dL Creatinine 1.0 (0.7-1.3) mg/dL Est Cr Clr Drug Dosing 77.60 mL/min Estimated GFR (MDRD) > 60 (>60) mL/min BUN/Creatinine Ratio 22.0 H (14-18) Glucose 97 (70-99) mg/dL Calcium 8.3 L (8.5-10.1) mg/dL Phosphorus 2.7 (2.6-4.7) mg/dL Magnesium 2.0 (1.8-2.4) mg/dL Result Diagrams: 06/28/21 05:17 06/28/21 05:17 Sepsis Event Note - Evaluation Sepsis Screening Result: No Definite Risk - Focused Exam Vital Signs: Vital Signs Temp Pulse Resp BP Pulse Ox 06/28/21 05:46 97.7 F 79 20 142/77 H 93 L 06/27/21 20:34 98.1 F 88 22 H 144/86 H 91 L - Problem List Review Problem List Initiated/Reviewed/Updated: No - My Orders Last 24 Hours: My Active Orders 06/27/21 17:00 Nasogastric Orogastric Tube Removal [OM.PC] Routine 06/28/21 05:00 Piperacillin/Tazobactam [Piperacil-Tazobact] 4.5 gm Sodium Chloride 0.9% [Normal Saline] 100 ml IV Q8H 06/29/21 05:11 BASIC METABOLIC PANEL,BMP [CHEM] AM CBC WITH AUTO DIFF [HEME] AM MAGNESIUM [CHEM] AM PHOSPHORUS [CHEM] AM 06/30/21 05:11 BASIC METABOLIC PANEL,BMP [CHEM] AM CBC WITH AUTO DIFF [HEME] AM MAGNESIUM [CHEM] AM PHOSPHORUS [CHEM] AM - Assessment Assessment:: POD4 s/p lap appendectomy for perforated acute appendicitis with small localized abscess and peritonitis. Developed paralytic ileus - now resolving - Plan Plan:: - start clears today - dc IVF - dc antibiotics later today - encourage ambulation Dispo: pending clinical improvement Patient will stay greater than 96 hours due to slow recovery from ileus.
[2021-06-28] MEDS: Enoxaparin 40 MG/0.4 ML Syringe SUBCUT SCH (08:36)
[2021-06-28] MEDS: Tamsulosin 0.4 MG Cap.ER PO SCH (08:37)
[2021-06-28] MEDS: Pantoprazole 40 MG Vial IVPUSH SCH (08:37)
--- NOTE | 2021-06-28 16:18 | PCM.DCSUM1 ---
Discharge Summary - Hospital Course Free Text/Narrative:: The patient had acute perforated appendicitis with localized abscess. He underwent appendectomy and abdominal washout. His stay was complicated by paralytic ileus post operatively for which he had to get an NGT for 3 days. His bowel function eventually returned and his NGT was removed. He was ambulating without much pain. he was discharged home in stable condition. He will follow up with me in 2 weeks. Diagnosis: Stroke: No - Discharge Data Discharge Date: 06/28/21 Discharge Disposition: Home, Self-Care 01 Condition: Good - Referral to Home Health Primary Care Physician: César Giang MD - Patient Instructions Diet: Heart Healthy Diet Activity: No Lifting Over 20 Pounds (for 2 weeks) Driving: May Drive Today (if feeling well) Showering/Bathing: May Shower Wound/Incision Care: Keep Operative Site/Wound Site Clean and Dry Notify Provider of: Fever, Increased Pain, Swelling and Redness, Nausea and/or Vomiting Other/Special Instructions: - Continue to stay active with walking and breathing deeply. - Discharge Plan *PRESCRIPTION DRUG MONITORING PROGRAM REVIEWED*: Not Applicable *COPY OF PRESCRIPTION DRUG MONITORING REPORT IN PATIENT FLAQUITO: Not Applicable Home Medications: Home Meds Ascorbic Acid [Vitamin C] 1,000 mg PO DAILY 06/06/20 [History] Aspirin [Halfprin] 81 mg PO DAILY 06/06/20 [History] Cholecalciferol (Vitamin D3) [Vitamin D3] 5,000 unit PO DAILY 06/06/20 [History] Multivitamin 1 tab PO DAILY 06/06/20 [History] hydroCHLOROthiazide [Hydrochlorothiazide] 12.5 mg PO DAILY 06/06/20 [History] Carbidopa/Levodopa [Carbidopa-Levodopa 25-100 Tab] 1.5 tab PO TID 06/24/21 [History] Esomeprazole Magnesium 40 mg PO DAILY 06/24/21 [History] Tamsulosin [Flomax] 0.4 mg PO DAILY 06/24/21 [History] Rosuvastatin [Crestor] 10 mg PO DAILY 06/25/21 [History] Oxygen Therapy Mode: Room Air Patient Handouts: Laparoscopic Appendectomy, Adult, Care After, Ileus, Laparoscopic Appendectomy, Adult Forms: ED Department Discharge Referrals: César Giang MD [Primary Care Provider] - (fo//ow up as needed) Blanco Frye MD [Physician] - (2 weeks) - Discharge Summary/Plan Comment DC Time >30 min.: Yes Total # of Minutes for Discharge Time: 35 minutes - Patient Data Vitals - Most Recent: Last Vital Signs Temp 97.9 F 06/28/21 09:04 Pulse 76 06/28/21 09:04 Resp 20 06/28/21 09:04 BP 151/94 H 06/28/21 09:04 Pulse Ox 94 L 06/28/21 09:04 Weight - Most Recent: 104.054 kg I&O - Last 24 hours: Intake & Output 06/28/21 06/28/21 06/28/21 06:59 14:59 22:59 Intake Total 4291 480 120 Balance 4291 480 120 Lab Results - Last 24 hrs: Laboratory Results - last 24 hr 06/28/21 06/28/21 Range/Units 05:17 05:17 WBC 7.07 (4.23-9.07) K/mm3 RBC 4.67 (4.63-6.08) M/mm3 Hgb 13.6 L (13.7-17.5) gm/dl Hct 40.0 L (40.1-51.0) % MCV 85.7 (79.0-92.2) fl MCH 29.1 (25.7-32.2) pg MCHC 34.0 (32.2-35.5) g/dl RDW Std Deviation 41.0 (35.1-43.9) fL Plt Count 249 (163-337) K/mm3 MPV 10.3 (9.4-12.3) fl Neut % (Auto) 72.3 H (34.0-67.9) % Lymph % (Auto) 12.2 L (21.8-53.1) % Carbon % (Auto) 11.3 (5.3-12.2) % Eos % (Auto) 3.1 (0.8-7.0) Baso % (Auto) 0.7 (0.1-1.2) % Neut # (Auto) 5.11 (1.78-5.38) K/mm3 Lymph # (Auto) 0.86 L (1.32-3.57) K/mm3 Carbon # (Auto) 0.80 (0.30-0.82) K/mm3 Eos # (Auto) 0.22 (0.04-0.54) K/mm3 Baso # (Auto) 0.05 (0.01-0.08) K/mm3 Sodium 141 (136-145) mEq/L Potassium 3.8 (3.5-5.1) mEq/L Chloride 106 (98-107) mEq/L Carbon Dioxide 25 (21-32) mEq/L Anion Gap 13.8 (5-15) BUN 22 H (7-18) mg/dL Creatinine 1.0 (0.7-1.3) mg/dL Est Cr Clr Drug Dosing 77.60 mL/min Estimated GFR (MDRD) > 60 (>60) mL/min BUN/Creatinine Ratio 22.0 H (14-18) Glucose 97 (70-99) mg/dL Calcium 8.3 L (8.5-10.1) mg/dL Phosphorus 2.7 (2.6-4.7) mg/dL Magnesium 2.0 (1.8-2.4) mg/dL Med Orders - Current: Current Medications Bisacodyl (Bisacodyl 10 Mg Supp) 10 mg RECTAL DAILY PRN PRN Reason: Constipation Last Admin: 06/26/21 12:05 Dose: 10 mg Documented by: Carbidopa/Levodopa (Carbidopa/Levodopa 25-100 Mg Tab) 1.5 tab PO 0600,1100,1600 [facility] Last Admin: 06/28/21 10:59 Dose: 1.5 tab Documented by: Enoxaparin Sodium (Enoxaparin 40 Mg/0.4 Ml Syringe) 40 mg SUBCUT DAILY [facility] Last Admin: 06/28/21 08:36 Dose: 40 mg Documented by: Hydrochlorothiazide (Hydrochlorothiazide 12.5 Mg Cap) 12.5 mg PO DAILY [facility] Last Admin: 06/25/21 09:36 Dose: Not Given Documented by: Hydromorphone HCl (Hydromorphone 0.5 Mg/0.5 Ml Syringe) 0.5 mg IVPUSH Q6H PRN PRN Reason: Pain Last Admin: 06/26/21 20:02 Dose: 0.5 mg Documented by: Piperacillin Sod/Tazobactam (Sod 4.5 gm/ Sodium Chloride) 100 mls @ 25 mls/hr IV Q8H [facility] Last Admin: 06/28/21 12:07 Dose: 25 mls/hr Documented by: Ketorolac Tromethamine (Ketorolac 15 Mg/Ml Sdv) 15 mg IVPUSH Q6H [facility] Last Admin: 06/28/21 12:06 Dose: 15 mg Documented by: Ondansetron HCl (Ondansetron 4 Mg Tab.Dis) 4 mg PO Q4H PRN PRN Reason: nausea, able to take PO Last Admin: 06/26/21 20:08 Dose: 4 mg Documented by: Pantoprazole Sodium (Pantoprazole 40 Mg Vial) 40 mg IVPUSH DAILY [facility] Last Admin: 06/28/21 08:37 Dose: 40 mg Documented by: Polyethylene Glycol (Polyethylene Glycol 3350 Powder 17 Gm Packet) 17 gm PO DAILY [facility] Last Admin: 06/25/21 09:34 Dose: 17 gm Documented by: Tamsulosin HCl (Tamsulosin 0.4 Mg Cap.Er) 0.4 mg PO DAILY [facility] Last Admin: 06/28/21 08:37 Dose: 0.4 mg Documented by: Discontinued Medications Albuterol (Albuterol 6.7 Gm Inhaler) Confirm Administered Dose 6.7 gm INH .STK- MED ONE Stop: 06/24/21 15:42 Aspirin (Aspirin 81 Mg Tab.Ec) 81 mg PO DAILY [facility] Last Admin: 06/25/21 09:32 Dose: 81 mg Documented by: Bupivacaine HCl/Epinephrine Bitart (Bupivacaine 0.5%/Epinephrine 1:200,000 50 Ml Mdv) Confirm Administered Dose 50 ml .ROUTE .STK-MED ONE Stop: 06/24/21 13:27 Last Admin: 06/24/21 14:11 Dose: 50 ml Documented by: Carbidopa/Levodopa (Carbidopa/Levodopa 25-100 Mg Tab) 1.5 tab PO TID [facility] Last Admin: 06/24/21 20:19 Dose: 1.5 tab Documented by: Carbidopa/Levodopa (Carbidopa/Levodopa 25-100 Mg Tab) 1.5 tab PO 0600,1100,1600 [facility] Last Admin: 06/25/21 07:50 Dose: 1.5 tab Documented by: Carbidopa/Levodopa (Carbidopa/Levodopa 25-100 Mg Tab) 1.5 tab PO TID [facility] Dexamethasone (Dexamethasone 4 Mg/Ml 5 Ml Mdv) Confirm Administered Dose 20 mg .ROUTE .STK-MED ONE Stop: 06/24/21 12:24 Diatrizoate Meglum/Diatrizoate Sod (Diatrizoate Meglumine/Diatrizoate Sodium 37% 120 Ml Bottle) 120 ml PO ONETIME ONE Stop: 06/24/21 03:43 Last Admin: 06/24/21 03:43 Dose: 120 ml Documented by: Docusate Sodium (Docusate Sodium 100 Mg Cap) 100 mg PO DAILY PRN PRN Reason: Constipation Fentanyl (Fentanyl 250 Mcg/5 Ml Sdv) Confirm Administered Dose 250 mcg .ROUTE .STK-MED ONE Stop: 06/24/21 12:20 Fentanyl (Fentanyl 100 Mcg/2 Ml Sdv) 50 mcg IVPUSH Q5M PRN PRN Reason: Pain Stop: 06/24/21 23:00 Glycopyrrolate (Glycopyrrolate 0.2 Mg/Ml 2 Ml Syringe) Confirm Administered Dose 0.8 mg .ROUTE .STK-MED ONE Stop: 06/24/21 14:15 Hydrochlorothiazide (Hydrochlorothiazide 25 Mg Tab) 12.5 mg PO DAILY [facility] Stop: 06/25/21 11:00 Last Admin: 06/25/21 09:34 Dose: 12.5 mg Documented by: Hydromorphone HCl (Hydromorphone 0.5 Mg/0.5 Ml Syringe) 0.5 mg IVPUSH ONETIME ONE Stop: 06/24/21 02:16 Last Admin: 06/24/21 02:42 Dose: 0.5 mg Documented by: Hydromorphone HCl (Hydromorphone 0.5 Mg/0.5 Ml Syringe) 0.5 mg IVPUSH ONETIME ONE Stop: 06/24/21 05:28 Last Admin: 06/24/21 05:44 Dose: 0.5 mg Documented by: Hydromorphone HCl (Hydromorphone 0.5 Mg/0.5 Ml Syringe) 0.5 mg IVPUSH ONETIME ONE Stop: 06/24/21 08:20 Last Admin: 06/24/21 08:23 Dose: 0.5 mg Documented by: Hydromorphone HCl (Hydromorphone 1 Mg/Ml Syringe) 1 mg IVPUSH ONETIME ONE Stop: 06/24/21 09:45 Last Admin: 06/24/21 09:48 Dose: 1 mg Documented by: Hydromorphone HCl (Hydromorphone 0.5 Mg/0.5 Ml Syringe) Confirm Administered Dose 0.5 mg .ROUTE .STK-MED ONE Stop: 06/24/21 14:30 Hydromorphone HCl (Hydromorphone 0.5 Mg/0.5 Ml Syringe) Confirm Administered Dose 0.5 mg .ROUTE .STK-MED ONE Stop: 06/24/21 14:58 Hydromorphone HCl (Hydromorphone 0.5 Mg/0.5 Ml Syringe) 0.5 mg IVPUSH Q10M PRN PRN Reason: Pain (severe 7-10) Stop: 06/24/21 23:00 Hydromorphone HCl (Hydromorphone 0.5 Mg/0.5 Ml Syringe) 0.5 mg IVPUSH Q2H PRN PRN Reason: Pain (severe 7-10) Sodium Chloride (Normal Saline) 1,000 mls @ 1,000 mls/hr IV .BOLUS STA Stop: 06/24/21 03:13 Last Admin: 06/24/21 02:40 Dose: 1,000 mls/hr Documented by: Cefoxitin Sodium 2 gm/ Premix 50 mls @ 100 mls/hr IV ONETIME ONE Stop: 06/24/21 05:00 Last Admin: 06/24/21 04:50 Dose: 100 mls/hr Documented by: Lactated Ringer's (Ringers, Lactated) Confirm Administered Dose 1,000 mls @ as directed .ROUTE .ST-MED ONE Stop: 06/24/21 14:13 Lactated Ringer's (Ringers, Lactated) Confirm Administered Dose 1,000 mls @ as directed .ROUTE .STK-MED ONE Stop: 06/24/21 14:13 Lactated Ringer's (Ringers, Lactated) 1,000 mls @ 125 mls/hr IV ASDIRECTED JUANIS Piperacillin Sod/Tazobactam (Sod 4.5 gm/ Sodium Chloride) 100 mls @ 200 mls/hr IV ONETIME ONE Stop: 06/24/21 16:31 Last Admin: 06/24/21 17:37 Dose: 200 mls/hr Documented by: Sodium Chloride (Normal Saline) 1,000 mls @ 125 mls/hr IV ASDIRECTED [facility] Last Admin: 06/25/21 09:00 Dose: 125 mls/hr Documented by: Piperacillin Sod/Tazobactam (Sod 4.5 gm/ Sodium Chloride) 100 mls @ 25 mls/hr IV Q8H [facility] Last Admin: 06/25/21 16:19 Dose: 25 mls/hr Documented by: Sodium Chloride (Normal Saline) 1,000 mls @ 1,000 mls/hr IV ONETIME ONE Stop: 06/24/21 17:29 Last Admin: 06/24/21 16:30 Dose: 1,000 mls/hr Documented by: Potassium Chloride/Dextrose/Sod Cl (D5 1/2 Ns W/ 20 Meq/L Kcl) 1,000 mls @ 100 mls/hr IV ASDIRECTED [facility] Last Admin: 06/28/21 00:00 Dose: 100 mls/hr Documented by: Lactated Ringer's (Ringers, Lactated) 1,000 mls @ 999 mls/hr IV BOLUS ONE Stop: 06/25/21 21:17 Last Admin: 06/25/21 20:18 Dose: 999 mls/hr Documented by: Lactated Ringer's (Ringers, Lactated) Confirm Administered Dose 1,000 mls @ as directed .ROUTE .STK-MED ONE Stop: 06/25/21 20:08 Last Admin: 06/25/21 20:18 Dose: Not Given Documented by: Piperacillin Sod/Tazobactam (Sod 4.5 gm/ Sodium Chloride) 100 mls @ 25 mls/hr IV Q8H [facility] Last Admin: 06/27/21 18:17 Dose: 25 mls/hr Documented by: Ibuprofen (Ibuprofen 600 Mg Tab) 600 mg PO Q6H [facility] Last Admin: 06/25/21 11:36 Dose: 600 mg Documented by: Iopamidol (Iopamidol 612 Mg/Ml 50 Ml Sdv) 50 ml IVPUSH ONETIME ONE Stop: 06/24/21 03:43 Last Admin: 06/24/21 03:43 Dose: 50 ml Documented by: Iopamidol (Iopamidol 612 Mg/Ml 100 Ml Bottle) 100 ml IVPUSH ONETIME ONE Stop: 06/24/21 03:43 Last Admin: 06/24/21 03:43 Dose: 100 ml Documented by: Ketamine HCl (Ketamine 500 Mg/10 Ml Mdv) Confirm Administered Dose 500 mg .ROUTE .STK-MED ONE Stop: 06/24/21 14:31 Ketorolac Tromethamine (Ketorolac 30 Mg/Ml Sdv) Confirm Administered Dose 30 mg .ROUTE .STK-MED ONE Stop: 06/24/21 12:37 Ketorolac Tromethamine (Ketorolac 15 Mg/Ml Sdv) 15 mg IVPUSH Q6H [facility] Last Admin: 06/25/21 17:45 Dose: 15 mg Documented by: Lidocaine HCl (Lidocaine 1% 5 Ml Sdv) Confirm Administered Dose 5 ml .ROUTE .STK-MED ONE Stop: 06/24/21 12:22 Midazolam HCl (Midazolam 1 Mg/Ml 2 Ml Sdv) Confirm Administered Dose 2 mg .ROUTE .STK-MED ONE Stop: 06/24/21 12:20 Neostigmine Methylsulfate (Neostigmine Methylsulfate 5 Mg/5 Ml Syringe) Confirm Administered Dose 5 mg .ROUTE .STK-MED ONE Stop: 06/24/21 14:15 Ondansetron HCl (Ondansetron 4 Mg/2 Ml Sdv) 4 mg IVPUSH ONETIME ONE Stop: 06/24/21 02:16 Last Admin: 06/24/21 02:42 Dose: 4 mg Documented by: Ondansetron HCl (Ondansetron 4 Mg/2 Ml Sdv) 4 mg IVPUSH ONETIME ONE Stop: 06/24/21 09:45 Last Admin: 06/24/21 09:48 Dose: 4 mg Documented by: Ondansetron HCl (Ondansetron 4 Mg/2 Ml Sdv) Confirm Administered Dose 4 mg .ROUTE .STK-MED ONE Stop: 06/24/21 12:24 Ondansetron HCl (Ondansetron 4 Mg/2 Ml Sdv) 4 mg IVPUSH ONETIME PRN PRN Reason: Nausea/Vomiting Stop: 06/24/21 23:00 Oxycodone/Acetaminophen (Acetaminophen/Oxycodone 325-5 Mg Tab) 1 tab PO Q4H PRN PRN Reason: Pain (moderate 4-6) Pantoprazole Sodium (Pantoprazole 40 Mg Tab.Cr) 40 mg PO ACBREAKFAST [facility] Last Admin: 06/25/21 06:21 Dose: 40 mg Documented by: Polyethylene Glycol (Polyethylene Glycol 3350 Powder 17 Gm Packet) 17 gm PO DAILY PRN PRN Reason: Constipation Propofol (Propofol 200 Mg/20 Ml Sdv) Confirm Administered Dose 200 mg .ROUTE .STK-MED ONE Stop: 06/24/21 12:20 Rocuronium [place]is (Rocuronium 50 Mg/5 Ml Vial) Confirm Administered Dose 50 mg .ROUTE .STK-MED ONE Stop: 06/24/21 12:23 Sodium Chloride (Sodium Chloride 0.9% 10 Ml Syringe) 10 ml FLUSH ASDIRECTED PRN PRN Reason: Keep Vein Open Stop: 06/24/21 18:00 Last Admin: 06/24/21 03:43 Dose: 10 ml Documented by: Sodium Chloride (Sodium Chloride 0.9% 10 Ml Sdv) 10 ml FLUSH ONETIME ONE Stop: 06/24/21 03:43 Last Admin: 06/24/21 04:00 Dose: 10 ml Documented by:
== END 2021-06-28 16:40 | disposition home or self-care (01) | DRG 342 ==
LOC: JD.ED 01:38 → JD.SDS 08:46 → OBSVTOIN 15:49 → JD.MS 15:49 → UNDOADMOB 17:25 → JD.MS 06-25 00:28 → JD.OB 06-25 00:28 → JD.MS 06-25 21:46
PROVIDERS: ADMIT Surgery; ATTEND Surgery
DX: K35.30 Acute appendicitis with localized peritonitis, without perforation or gangrene (principal); K56.7 Ileus, unspecified; I10 Essential (primary) hypertension; H54.7 Unspecified visual loss; G47.30 Sleep apnea, unspecified; K21.9 Gastro-esophageal reflux disease without esophagitis; Z79.82 Long term (current) use of aspirin; Z79.899 Other long term (current) drug therapy; Z98.890 Other specified postprocedural states; K35.33 Acute appendicitis with perforation, localized peritonitis, and gangrene, with abscess; K40.90 Unilateral inguinal hernia, without obstruction or gangrene, not specified as recurrent; Z20.822 Contact with and (suspected) exposure to COVID-19
CPT/HCPCS: 36415; 44970; 74177; 80053; 81001; 83690; 85025; 96365; 96375; 96376; 99285; A9270; J0694; J1100; J1170 ×6; J1885; J2250; J2405 ×3; J2704; J2710; J3010; J3490; J7030; J7120 ×2; Q9963; Q9967 ×2; U0002; 00840; 71045; 71045-26; 74018; 74018-26; 80048; 83735; 84100; 88304; 94760; 94761; C9113; J1650; J2543; J3480